=== PATIENT | female | born 1990 | race Caucasian/White ===

== ENCOUNTER 2020-09-04 02:23 | Emergency (ER) | payer SELFPAY ==
--- OUTSIDE RECORDS SUMMARY | 2020-09-04 02:41 | XMS REPORT | Continuity of Care Document ---
:1990 Author Organization [facility] t Address [address] [place] [address] Care Team Providers Name Role Phone Asked, Pcp Primary Care Physician Unavailable Singer SHETTY Attending Clinician Ani BOONE, Tana Attending Clinician Problems This patient has no known problems. Allergies, Adverse Reactions, Alerts Allergy Allergy Status Severity Reaction(s) Onset Inactive Treating Comm ents Source Name Type Date Date Clinician Latex Propensi Active Hives [place] ty to 4-25 Methodi adverse 00:00: st reaction 00 s to drug Penicill Propensi Active Hives [place] in G ty to 25 Methodi adverse 00:00: st reaction 00 s to drug Social History Social Habit Start Date Stop Date Quantity Comments Source History [facility] Alcohol Binge History [facility] Alcohol Std Drinks Tobacco use and 2018-06-25 2018-06-25 Never used [facility] ethodist exposure 00:00:00 00:00:00 Alcohol intake 2018-06-25 2018-06-25 Current [facility] thodist 00:00:00 00:00:00 non-drinker of alcohol (finding) History SDMN 2018-06-25 2018-06-25 1 [facility] Alcohol Frequency 00:00:00 00:00:00 Sex [birth year] At [birth year] [facility] Veronica ethodist 00:00:00 00:00:00 Smoking Status Start Date Stop Date Source Never smoker [facility] t Medications Ordered Filled Start Stop Current Ordering Indication Dosage Frequency Signature Comments Components Source Medication Medication Date Date Medication? Clinician (SIG) Name Name ibuprofen 2019 Yes 600mg Q6H Take 1 [place] on (ADVIL,MOTR 4-25 tablet Method i IN) 600 MG 00:00: ([address] tablet 00 total) by mouth every 6 (six) hours as needed for mild pain for up to 40 doses. Procedures This patient has no known procedures. Plan of Care Planned Activity Planned Date Details Comments Source Future Scheduled 2020-10-01 INFLUENZA VACCINE [place] [facility] 00:00:00 [code = INFLUENZA VACCINE] Future Scheduled 2013 Screening for [facility] thodist Test 00:00:00 malignant neoplasm of cervix (procedure) [code = 473891122] Future Scheduled 2010 Hepatitis C [facility] Test 00:00:00 screening (procedure) [code = 246916671] Future Scheduled 2004 COVID-19 VACCINE (1) [facility] stev[facility] 00:00:00 [code = COVID-19 VACCINE (1)] Encounters Start End Encounter Admission Attending Care Care Encounter Source Date/Time Date/Time Type Type Clinicians Facility Department ID 2020-05-04 2020-05-04 Emergency [facility] [id number] 08:24:00 09:02:00 Antoine Flores [id number] [place] [id number] [place] [id number] 2019-04-28 2019-04-28 Emergency [facility] [id number] 18:08:01 20:33:00 Dora Flores [id number] [place] [id number] [place] [id number] Results This patient has no known results.
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
[2020-09-04 03:55] VITALS: BP 150/105; TEMP 97.8; O2SAT 98
== END 2020-09-04 03:48 | disposition left against medical advice (07) ==
LOC: ER 02:23
DX: R68.84 Jaw pain (principal); S30.1XXA Contusion of abdominal wall, initial encounter; Y04.2XXA Assault by strike against or bumped into by another person, initial encounter; Z88.0 Allergy status to penicillin; Z91.018 Allergy to other foods; Z91.030 Bee allergy status; Z91.040 Latex allergy status; Z91.048 Other nonmedicinal substance allergy status
CPT/HCPCS: 99282

== ENCOUNTER 2022-01-30 01:04 | Emergency (ER) | payer OTHER ==
--- OUTSIDE RECORDS SUMMARY | 2022-01-30 01:09 | XMS REPORT | Continuity of Care Document ---
:1990 Author Organization [facility] t Address [address] [place] [address] Care Team Providers Name Role Phone LUIS E PINA Primary Care Physician Unavailable CELSO MURRIETA Attending Clinician Unavailable JG KAUFMAN Attending Clinician Unavailable Jg Romano Attending Clinician Christal LONG Attending Clinician Unavailable Christal Escalante Attending Clinician Doctor Unassigned, [place] Attending Clinician Unavailable Carlo Valladares Attending Clinician Unavailable Antoine Ndiaye DO Attending Clinician YADIRA GARCIA Attending Clinician Unavailable Yadira Garcia NP Attending Clinician KNOW, DOES_NOT Admitting Clinician Unavailable YADIRA GARCIA Admitting Clinician Unavailable Payers Payer Name Policy Type Policy Number Effective Date Expiration Date Justina [employer] [id number] 2019 HEALTH 00:00:00 Problems Condition Condition Condition Status Onset Resolution Last Treating Co mments Source Name Details Category Date Date Treatment Clinician Date Placenta Placenta Disease Active Unive rs previa previa 7 ity of 00:00: [address] Branch Placenta Placenta Disease Active Unive rs previa previa 6-22 [place]y [place] second 00 Medi angelito trimester trimester Bran ch Bed bug Bed bug Disease Active Univers bite bite 6-17 ity of 00:00: [place] [address] Medical Branch Chlamydia Chlamydia Disease Active Uni vers infection infection 5-27 [place] second in second Bran ch trimester, trimester, antepartum antepartum Bacterial Bacterial Disease Active Uni vers vaginosis vaginosis 5-27 ity of 00:00: [place] [address] Medical Branch Supervisio Supervisio Disease Active U nivers n of n of 5-20 ity of high-risk high[place] [facility] with with Branch insufficie insufficie nt nt care, care, second second trimester trimester History of History of Disease Active U nivers gallstones gallstones 5-20 it y of 00:00: [place] [address] Medical Branch History of History of Disease Active U nivers ovarian ovarian 5-20 ity of cyst cyst 00:00: [place] [address] Medical Branch Kidney Kidney Disease Active Univers cyst, cyst, 5-20 ity of acquired acquired 00:00: [place] [address] Medical Branch Sterilizat Sterilizat Disease Active U nivers ion ion 5-20 ity of consult consult 00:00: [place] [address] Medical Branch Vaginal Vaginal Disease Active Univers bleeding bleeding 5-20 ity of in in 00:00: [place] , , 00 Me dical first first Branch trimester trimester UTI in UTI in Disease Active 2015- Univers , , 5-20 it y of antepartum [place] , [place] , second 00 Medica l trimester trimester Bran ch Allergies, Adverse Reactions, Alerts Allergy Allergy Status Severity Reaction(s) Onset Inactive Treating Comm ents Source Name Type Date Date Clinician penicill DA Active SV 2020- [facility] G 7-08 [place] 00:00: d 00 [facility] coconut FA Active SV 2020- [facility] 7-08 [place] 00:00: d 00 [facility] penicill DA Active SV RASH 2020-0 [facility] in G 7-08 [place] 00:00: d 00 [facility] coconut FA Active SV RASH 2020-0 [facility] 7-08 [place] 00:00: d 00 [facility] Penicill Propensi Active Swelling 2019-0 Univ ers ins ty to 2-26 ity of adverse 00:00: [place] reaction 00 Medical s Branch PENICILL Drug Active Swelling 2019-0 Univer s INS Class 2-26 ity of 00:00: [place] 00 Medical Branch Penicill Propensi Active Swelling 2019-0 Univ ers ins ty to 2-26 ity of adverse 00:00: [place] reaction 00 Medical s Branch Latex Propensi Active Hives Methodi ty to 4-25 st adverse 00:00: Hospita reaction 00 l s to drug Penicill Propensi Active Hives Method i in G ty to 4-25 st adverse 00:00: Hospita reaction 00 l s to drug COCONUT DRUG Active Anaphylaxis Univ ers INGREDI 5-16 ity of 00:00: [place] 00 Medical Branch LATEX DRUG Active Hives Univers INGREDI 5-16 ity of 00:00: [place] 00 Medical Branch Coconut Propensi Active Anaphylaxis Un kye ty to 5-16 ity of adverse 00:00: [place] reaction 00 Medical s Branch Latex Propensi Active Hives Univers ty to 5-16 ity of adverse 00:00: [place] reaction 00 Medical s Branch Social History Social Habit Start Date Stop Date Quantity Comments Source History of Current smoker University of tobacco use [place] [facility] [place] History [facility] Drinks History [facility] Exposure to 2022-01-06 2022-01-16 Not sure University SARS-CoV-2 00:00:00 22:38:00 [facility] (event) Branch Tobacco use and 2018-06-25 2018-06-25 Smokeless tobacco [facility] exposure 00:00:00 00:00:00 non-user Hospital Alcohol intake 2018-06-25 2018-06-25 Current [facility] 00:00:00 00:00:00 non-drinker of Hospital alcohol (finding) History SDOH 2018-06-25 2018-06-25 1 [facility] Frequency 00:00:00 00:00:00 Hospita l Sex Assigned At [birth year] [facility] 00:00:00 00:00:00 Hospital Smoking Status Start Date Stop Date Source Never smoked tobacco [facility] Ex-smoker 2015-07-21 00:00:00 2015-07-21 00:00:00 [facility] Medical Branch Medications Ordered Filled Start Stop Current Ordering Indication Dosage Frequency Signature Comments Components Source Medication Medication Date Date Medication? Clinician (SIG) Name Name ibuprofen 2021-03 Yes [id number] 800mg Take 1 U nivers 800 mg 1-16 tablet by ity of tablet 00:00: mouth [place] 00 every 6 Medical (six) Branch hours as needed for Pain (scale 1-3). Nitrofurant 2021-03- Yes [id number] 100mg Take 1 Univers oin&Nit. 1-16 11-24 capsule by ity of [place] 00:00: 05:59 [place] (MACROBID[place] 00 :00 the Medical 100 mg morning Branch capsule and 1 capsule in the evening. Do all this for 7 days. proMETHazin Yes [id number] 25mg Take 1 Univers e 25 mg 2-26 tablet by ity of tablet 00:00: mouth [place] 00 every 6 Medical (six) Branch hours as needed for Nausea and Vomiting (N/V). proMETHazin Yes [id number] 25mg Take 1 Univers e 25 mg 2-26 tablet by ity of tablet 00:00: mouth [place] 00 every 6 Medical (six) Branch hours as needed for Nausea and Vomiting (N/V). proMETHazin Yes [id number] 25mg Take 1 Univers e 25 mg 2-26 tablet by ity of tablet 00:00: mouth [place] 00 every 6 Medical (six) Branch hours as needed for Nausea and Vomiting (N/V). ibuprofen Yes 600mg Q6H Take 1 Metho di (ADVIL,MOTR 4-[address] IN) 600 MG 00:00: (600 mg Hosp cory tablet 00 total) by l mouth every 6 (six) hours as needed for mild pain for up to 40 doses. acetaminoph Yes [id number] 1{tbl} Take 1 Univers en-codeine 1-14 tablet by ity of (TYLENOL-CO 00:00: mouth [place] DEINE #3) 00 every 6 Medical 300-30 mg (six) Branch tablet hours as needed for Pain (scale 4-6). acetaminoph Yes [id number] 1{tbl} Take 1 Univers en-codeine 1-14 tablet by ity of (TYLENOL-CO 00:00: mouth [place] DEINE #3) 00 every 6 Medical 300-30 mg (six) Branch tablet hours as needed for Pain (scale 4-6). acetaminoph Yes [id number] 1{tbl} Take 1 Univers en-codeine 1-14 tablet by ity of (TYLENOL-CO 00:00: mouth [place] DEINE #3) 00 every 6 Medical 300-30 mg (six) Branch tablet hours as needed for Pain (scale 4-6). ondansetron 2016-03 Yes 4mg Take 1 Univ ers (ZOFRAN 0-04 tablet by ity of ODT) 4 mg 00:00: mouth [place] disintegrat 00 every 8 Medic al ing tablet (eight) Branch hours as needed for Nausea and Vomiting (N/V). ondansetron 2016-03 Yes 4mg Take 1 Univ ers (ZOFRAN 0-04 tablet by ity of ODT) 4 mg 00:00: mouth [place] disintegrat 00 every 8 Medic al ing tablet (eight) Branch hours as needed for Nausea and Vomiting (N/V). ondansetron 2016-03 Yes 4mg Take 1 Univ ers (ZOFRAN 0-04 tablet by ity of ODT) 4 mg 00:00: mouth [place] disintegrat 00 every 8 Medic al ing tablet (eight) Branch hours as needed for Nausea and Vomiting (N/V). traMADOL Yes [id number] 50mg Take 1 Un kye (ULTRAM) 50 8-26 tablet by ity of mg tablet 00:00: mouth [place] 00 every 6 Medical (six) Branch hours as needed for Pain (scale 7-10). ibuprofen Yes [id number] 600mg Take 1 Univers (MOTRIN) 8-26 tablet by ity of 600 mg 00:00: mouth [place] tablet 00 every 6 Medical (six) Branch hours as needed for Pain (scale 1-3) or Pain (scale 4-6). traMADOL Yes [id number] 50mg Take 1 Un kye (ULTRAM) 50 8-26 tablet by ity of mg tablet 00:00: mouth [place] 00 every 6 Medical (six) Branch hours as needed for Pain (scale 7-10). traMADOL Yes [id number] 50mg Take 1 Un kye (ULTRAM) 50 8-26 tablet by ity of mg tablet 00:00: mouth [place] 00 every 6 Medical (six) Branch hours as needed for Pain (scale 7-10). ibuprofen Yes [id number] 600mg Take 1 Univers (MOTRIN) 8-26 tablet by ity of 600 mg 00:00: mouth [place] tablet 00 every 6 Medical (six) Branch hours as needed for Pain (scale 1-3) or Pain (scale 4-6). ibuprofen 2- No [id number] 600mg Take 1 Univers (MOTRIN) 8-26 11-16 tablet by ity o f 600 mg 00:00: 00:00 mouth [place] tablet 00 :00 every 6 Medical (six) Branch hours as needed for Pain (scale 1-3) or Pain (scale 4-6). Iron 18 mg Yes Take by Univ ers Tab 8-19 mouth. ity of 16:58: [address] Iron 18 mg Yes Take by Univ ers Tab 8-19 mouth. ity of 16:58: [address] Branch Iron 18 mg Yes Take by Univ ers Tab 8-19 mouth. ity of 16:58: [place] [address] Medical Branch docusate Yes 100mg Take 100 Univ ers (COLACE) 8-17 mg by ity of 100 mg 00:00: mouth. [place] capsule Medical Branch ferrous Yes 65mg Take 65 mg Univ ers sulfate 325 8-17 by mouth. ity of mg (65 mg 00:00: [place] iron) 00 Medical tablet Branch docusate Yes 100mg Take 100 Univ ers (COLACE) 8-17 mg by ity of 100 mg 00:00: mouth. [place] capsule 00 Medical Branch ferrous Yes 65mg Take 65 mg Univ ers sulfate 325 8-17 by mouth. ity of mg (65 mg 00:00: [place] iron) 00 Medical tablet Branch docusate Yes 100mg Take 100 Univ ers (COLACE) 8-17 mg by ity of 100 mg 00:00: mouth. [place] capsule 00 Medical Branch ferrous Yes 65mg Take 65 mg Univ ers sulfate 325 8-17 by mouth. ity of mg (65 mg 00:00: [place] iron) 00 Medical tablet Branch Yes Take by Univer s vit 7-29 mouth. ity of no.124-iron 16:39: [facility] Medical ( Branch VITAMIN) 27 mg iron- 800 mcg Tab Yes Take by Univer s vit 7- mouth. ity of no.124-iron 16:39: [facility] Medical ( Branch VITAMIN) 27 mg iron- 800 mcg Tab Yes Take by Univer s vit 7- mouth. ity of no.124-iron 16:39: [facility] Medical ( Branch VITAMIN) 27 mg iron- 800 mcg Tab Immunizations Ordered Filled Immunization Date Status Comments [facility] e Immunization Name Name [facility] 2015-09-29 Completed University 00:00:00 [facility] 2015-09-29 Completed University 00:00:00 [facility] 2015-09-29 Completed [facility] 00:00:00 [facility] [place] [facility] Vital Signs Vital Name Observation Time Observation Value Comments Source Systolic blood 2022-01-17 04:43:00 123 mm[Hg] Univer sity of [facility] Diastolic blood 2022-01-17 04:43:00 83 mm[Hg] Unive rsity of [facility] Heart rate 2022-01-17 04:43:00 126 /min [facility] Body temperature 2022-01-17 04:43:00 36.44 Marjorie [facility] Respiratory rate 2022-01-17 04:43:00 20 /min [facility] Body height 2022-01-17 04:43:00 180.3 cm [facility] Body weight 2022-01-17 04:43:00 59.421 kg [facility] BMI 2022-01-17 04:43:00 18.27 kg/m2 [facility] Oxygen saturation in 2022-01-17 04:43:00 97 /min [facility] Arterial blood by [facility] Pulse oximetry Branch Systolic blood 2021-05-30 02:10:00 131 mm[Hg] Univer sity of [facility] Diastolic blood 2021-05-30 02:10:00 98 mm[Hg] Unive rsity of [facility] Heart rate 2021-05-30 02:10:00 118 /min [facility] Body temperature 2021-05-30 02:10:00 36.89 Marjorie [facility] Respiratory rate 2021-05-30 02:10:00 18 /min [facility] Body height 2021-05-30 02:10:00 180.3 cm [facility] Body weight 2021-05-30 02:10:00 54.432 kg [facility] BMI 2021-05-30 02:10:00 16.74 kg/m2 [facility] Procedures Procedure Date / Time Performing Clinician Source Performed EKG-12 LEAD 2022-01-17 05:51:32 Og [facility] URINALYSIS 2022-01-17 05:07:00 Og [facility] POCT TEST 2022-01-17 04:54:00 [facility] URINE DRUG (IMMUNOASSAY) 2022-01-17 04:49:00 Og [facility] - COMPREHENSIVE DRUG Medical [facility] SCREEN CONSENT/REFUSAL FOR 2022-01-17 04:35:05 Doctor Unassigned, No [facility] [place] [facility] Name [facility] CONSENT/REFUSAL FOR 2021-05-30 02:05:06 Doctor Unassigned, No [facility] [place] [facility] Name [facility] NOTICE OF PRIVACY 2021-05-30 02:04:48 Doctor Unassigned, No [facility] PRACTICES Name [facility] Plan of Care Planned Activity Planned Date Details Comments Source Future Scheduled 2022-01-06 HEPATITIS B [facility] Test 13:12:02 VACCINES (1 of 3 - 3-dose series) [code = HEPATITIS B VACCINES (1 of 3 - 3-dose series)] Future Scheduled 2022-01-06 COVID-19 [facility]ACCINE [facility] Test 13:12:02 (#1) [code = COVID-19 VACCINE (#1)] Future Scheduled 2022-01-06 Screening for [facility] Test 13:12:02 malignant neoplasm of cervix (procedure) [code = 542648542] Future Scheduled 2022-01-06 INFLUENZA VACCINE [facility] Test 13:12:02 [code = INFLUENZA VACCINE] Encounters Start End Encounter Admission Attending Care Care Encounter Source Date/Time Date/Time Type Type Clinicians Facility Department ID 2021-01-[address] [facility] [id number] Univers 15:10:31 ity [facility] 2020-12-[address] [facility] [id number] Univers 03:04:51 ity of [facility] [place] [facility] 2022-01-22 2022-01-22 Outpatient R GLENNY, [facility] [id number] Univers 09:00:00 09:00:00 CELSO ity of [facility] [place] [facility] 2022-01-16 2022-01-16 Emergency X RIDJOSE, [facility] ERT [id number] Univers 22:46:00 23:55:00 DANIERAMY it y of [facility] [place] [facility] 2022-01-16 2022-01-16 Emergency Redig, [facility] [id number] Univers 22:46:00 23:55:00 Jg BELTRE [id number] ity of [place] [id number] [facility] [id number] [facility] 084 Branch 2021-05-29 2021-05-29 Emergency X ETHAN, K [facility] ERT [id number] Univers 21:17:00 22:50:00 ity of [facility] [place] [facility] 2021-05-29 2021-05-29 Emergency Ethan, K [facility] [id number] Univers 21:17:00 22:50:00 Cher BELTRE [id number] i ty of [place] [id number] [facility] [id number] [facility] 084 Branch 2021-05-29 2021-05-29 Orders Doctor CLOVIS [id number] Univers 00:00:00 00:00:00 Only Unassigned, JAMISON [id number] ity of [facility] [id number] [facility] [id number] [facility] 009 Branch 2020-09-07 2020-09-08 Emergency EM Valladares, [facility] [id number] [facility] 22:26:00 02:30:00 Carlo deng [facility] 2020-05-042020-05-04 [facility] [id number] 08:24:00 09:02:00 Antoine Belt[place] [id number] [place] [id number] [place] [id number] 2019-04-28 2019-04-28 Emergency X [facility] ERT [id number] Univers 18:08:01 20:33:00 YADIRA warner [facility] 2019-04-28 2019-04-28 Emergency [facility] [id number] 18:08:01 20:33:00 Yadira [place] [id number] [place] [id number] [place] [id number] Results Test Description Test Time Test Comments Results Result Comments Source POCT TEST 2022-01-17 04:54:00 Test Item Value Reference Range Interpretation Comme nts POCT PREG (test code = 1605) Negative On board controls acceptable with C Line (test code = 3574) Positiv e POCT PREG LOT # (test code = 3575) [id number] POCT PREG TEST DATE (test code = 3576) 06/01/2023 Lab Interpretation (test code = 90724-8) [facility] CULT IF [id number] 01:56:00 Test Item Value Reference Range Interpretation Comments UA COLOR (test code = YELLOW discript YEL/STRAW COLU) UA APPEARANCE (test code HAZY discript CLEAR A = APPU) UA GLUCOSE DIPSTICK (test NEGATIVE mg/dL NEG code = DGLUU) UA BILIRUBIN DIPSTICK NEGATIVE mg/dL NEG (test code = BILU) UA KETONE DIPSTICK (test NEGATIVE mg/dL NEG code = KETU) UA SPECIFIC GRAVITY (test 1.020 SG 1.005-1.030 code = SGU) UA BLOOD DIPSTICK (test NEGATIVE mg/DL NEG code = KIP) UA PH DIPSTICK (test code 6.0 pH UNITS 5.0-7.0 = ANIBAL) UA PROTEIN DIPSTICK (test NEGATIVE mg/dL NEG code = PROU) UA UROBILINIOGEN DIPSTICK 1.0 mg/dL <2.0 (test code = URO) UA NITRITE DIPSTICK (test POSITIVE SCREEN NEG A code = DAWN) UA LEUKOCYTE ESTERASE TRACE Leuk/mcL NEGATIVE A DIPSTICK (test code = LEUU) UA WBC (test code = WBCU) 3-5 #WBC/HPF 0-3 A UA RBC (test code = RBCU) NONE SEEN #RBC/HPF 0-3 UA BACTERIA (test code = 1+ /HPF NONE-TRACE A BACU) UA SQUAMOUS CELLS (test 1+ /HPF NONE A code = SQU) UA CULTURE NEEDED? (test NO, WBC<10 Criteria Culture CHK code = UACULT) Indication for culture: Dysuria/FrequencyUR HCG [id number] 01:56:00 Test Item Value Reference Range Interpretation Comments UR HCG QUAL (test code = HCGQLU) NEGATIVE NEGATIVE Indication for culture: Dysuria/FrequencyDRUGS OF ABUSE SCREEN [id number] 01:56:00 Test Item Value Reference Range Interpretation Comments URN COCAINE (test NEGATIVE See_Comment [Automate d code = COCAURN) SCcutoff message] The system which generated this result transmit ashu reference range : <300 NG/ML. The reference range was not used to interpret this result as normal/abnormal . URN CANNABINOIDS POSITIVE See_Comment A [Automated (test code = SCcutoff message] The CANNABURN) system which generated this result transmit ashu reference range : <50 NG/ML. The reference range was not used to interpret this result as normal/abnormal . URN AMPHETAMINE (test POSITIVE See_Comment A [Auto mated code = AMPHETURN) SCcutoff message] T he system which generated this result transmit ashu reference range : <1000 NG/ML. Th e reference range was not used to interpret this result as normal/abnormal . URN BARBITURATE (test NEGATIVE See_Comment [Auto mated code = BARBITURN) SCcutoff message] T he system which generated this result transmit ashu reference range : <200 NG/ML. The reference range was not used to interpret this result as normal/abnormal . URN BENZODIAZEPINE NEGATIVE See_Comment [Automat ed (test code = SCcutoff message] The BENZOURN) system which generated this result transmit ashu reference range : <200 NG/ML. The reference range was not used to interpret this result as normal/abnormal . URN OPIATES (test NEGATIVE See_Comment [Automate d code = OPIATURN) SCcutoff message] Th e system which generated this result transmit ashu reference range : <2000 NG/ML. Th e reference range was not used to interpret this result as normal/abnormal . URN PHENCYCLIDINE NEGATIVE See_Comment [Automate d (PCP) (test code = SCcutoff message] The PHENCURN) system which generated this result transmit ashu reference range : <25 NG/ML. The reference range was not used to interpret this result as normal/abnormal . URN METHADONE (test NEGATIVE See_Comment [Automa ashu code = METHAURN) SCcutoff message] Th e system which generated this result transmit ashu reference range : <300 NG/ML. The reference range was not used to interpret this result as normal/abnormal . Indication for culture: Dysuria/FrequencyUA RFLX MICR CULT IF INDICATED 2020-09-08 01:53:00 Test Item Value Reference Range Interpretation Comments UA COLOR (test code = YELLOW discript YEL/STRAW COLU) UA APPEARANCE (test code HAZY discript CLEAR A = APPU) UA GLUCOSE DIPSTICK (test NEGATIVE mg/dL NEG code = DGLUU) UA BILIRUBIN DIPSTICK NEGATIVE mg/dL NEG (test code = BILU) UA KETONE DIPSTICK (test NEGATIVE mg/dL NEG code = KETU) UA SPECIFIC GRAVITY (test 1.020 SG 1.005-1.030 code = SGU) UA BLOOD DIPSTICK (test NEGATIVE mg/DL NEG code = KIP) UA PH DIPSTICK (test code 6.0 pH UNITS 5.0-7.0 = ANIBAL) UA PROTEIN DIPSTICK (test NEGATIVE mg/dL NEG code = PROU) UA UROBILINIOGEN DIPSTICK 1.0 mg/dL <2.0 (test code = URO) UA NITRITE DIPSTICK (test POSITIVE SCREEN NEG A code = DAWN) UA LEUKOCYTE ESTERASE TRACE Leuk/mcL NEGATIVE A DIPSTICK (test code = LEUU) UA WBC (test code = WBCU) 3-5 #WBC/HPF 0-3 A UA RBC (test code = RBCU) NONE SEEN #RBC/HPF 0-3 UA BACTERIA (test code = 1+ /HPF NONE-TRACE A BACU) UA SQUAMOUS CELLS (test 1+ /HPF NONE A code = SQU) UA CULTURE NEEDED? (test NO, WBC<10 Criteria Culture CHK code = UACULT) Indication for culture: Dysuria/FrequencyUR HCG [id number] 01:53:00 Test Item Value Reference Range Interpretation Comments UR HCG QUAL (test code = HCGQLU) NEGATIVE NEGATIVE Indication for culture: Dysuria/FrequencyDRUGS OF ABUSE SCREEN [id number] 01:53:00 Test Item Value Reference Range Interpretation Comments URN COCAINE (test code = SCcutoff See_Comment [A utomated message] COCAURN) The system [employer] generated this result transmit ashu reference range : <300 NG/ML. The reference range was not used to interpret this result as normal/abnormal . URN CANNABINOIDS (test SCcutoff See_Comment [Aut omated message] code = CANNABURN) The system which generated this result transmit ashu reference range : <50 NG/ML. The refe rence range was not u sed to interpret th is result as normal/abnormal . URN AMPHETAMINE (test SCcutoff See_Comment [Auto mated message] code = AMPHETURN) The system which generated this result transmit ashu reference range : <1000 NG/ML. Th e reference range was not used to interpret this result as normal/abnormal . URN BARBITURATE (test SCcutoff See_Comment [Auto mated message] code = BARBITURN) The system which generated this result transmit ashu reference range : <200 NG/ML. The reference range was not used to interpret this result as normal/abnormal . URN BENZODIAZEPINE (test SCcutoff See_Comment [A utomated message] code = BENZOURN) The system which generated this result transmit ashu reference range : <200 NG/ML. The reference range was not used to interpret this result as normal/abnormal . URN OPIATES (test code = SCcutoff See_Comment [A utomated message] OPIATURN) The system [employer] generated this result transmit ashu reference range : <2000 NG/ML. Th e reference range was not used to interpret this result as normal/abnormal . URN PHENCYCLIDINE (PCP) SCcutoff See_Comment [Au tomated message] (test code = PHENCURN) The s ystem which generated this result transmit ashu reference range : <25 NG/ML. The refe rence range was not u sed to interpret th is result as normal/abnormal . URN METHADONE (test code SCcutoff See_Comment [A utomated message] = METHAURN) The system [employer] generated this result transmit ashu reference range : <300 NG/ML. The reference range was not used to interpret this result as normal/abnormal . Indication for culture: Dysuria/FrequencyUA RFLX MICR CULT IF INDICATED 2020-09-08 01:51:00 Test Item Value Reference Range Interpretation Comments UA COLOR (test code = COLU) YELLOW discript YEL/STRAW UA APPEARANCE (test code = HAZY discript CLEAR A APPU) UA GLUCOSE DIPSTICK (test NEGATIVE mg/dL NEG code = DGLUU) UA BILIRUBIN DIPSTICK (test NEGATIVE mg/dL NEG code = BILU) UA KETONE DIPSTICK (test code NEGATIVE mg/dL NEG = KETU) UA SPECIFIC GRAVITY (test 1.020 SG 1.005-1.030 code = SGU) UA BLOOD DIPSTICK (test code NEGATIVE mg/DL NEG = KIP) UA PH DIPSTICK (test code = 6.0 pH UNITS 5.0-7.0 ANIBAL) UA PROTEIN DIPSTICK (test NEGATIVE mg/dL NEG code = PROU) UA UROBILINIOGEN DIPSTICK 1.0 mg/dL <2.0 (test code = URO) UA NITRITE DIPSTICK (test POSITIVE SCREEN NEG A code = DAWN) UA LEUKOCYTE ESTERASE TRACE Leuk/mcL NEGATIVE A DIPSTICK (test code = LEUU) UA CULTURE NEEDED? (test code Criteria Culture CHK = UACULT) Indication for culture: Dysuria/FrequencyUR HCG [id number] 01:51:00 Test Item Value Reference Range Interpretation Comments UR HCG QUAL (test code = HCGQLU) NEGATIVE Indication for culture: Dysuria/FrequencyDRUGS OF ABUSE SCREEN [id number] 01:51:00 Test Item Value Reference Range Interpretation Comments URN COCAINE (test code = SCcutoff See_Comment [A utomated message] COCAURN) The system [employer] generated this result transmit ashu reference range : <300 NG/ML. The reference range was not used to interpret this result as normal/abnormal . URN CANNABINOIDS (test SCcutoff See_Comment [Aut omated message] code = CANNABURN) The system which generated this result transmit ashu reference range : <50 NG/ML. The refe rence range was not u sed to interpret th is result as normal/abnormal . URN AMPHETAMINE (test SCcutoff See_Comment [Auto mated message] code = AMPHETURN) The system which generated this result transmit ashu reference range : <1000 NG/ML. Th e reference range was not used to interpret this result as normal/abnormal . URN BARBITURATE (test SCcutoff See_Comment [Auto mated message] code = BARBITURN) The system which generated this result transmit ashu reference range : <200 NG/ML. The reference range was not used to interpret this result as normal/abnormal . URN BENZODIAZEPINE (test SCcutoff See_Comment [A utomated message] code = BENZOURN) The system which generated this result transmit ashu reference range : <200 NG/ML. The reference range was not used to interpret this result as normal/abnormal . URN OPIATES (test code = SCcutoff See_Comment [A utomated message] OPIATURN) The system [employer] generated this result transmit ashu reference range : <2000 NG/ML. Th e reference range was not used to interpret this result as normal/abnormal . URN PHENCYCLIDINE (PCP) SCcutoff See_Comment [Au tomated message] (test code = PHENCURN) The s [employer] which generated this result transmit ashu reference range : <25 NG/ML. The refe rence range was not u sed to interpret th is result as normal/abnormal . URN METHADONE (test code SCcutoff See_Comment [A utomated message] = METHAURN) The system [employer] generated this result transmit ashu reference range : <300 NG/ML. The reference range was not used to interpret this result as normal/abnormal . Indication for culture: Dysuria/Frequency- CT HEAD/BRAIN W/O [id number] 00:37:00[facility] 1990 Sex: F Name: AYAH GLASS : 1990 Age/S: 30 / F [address] Unit #: [id number] Loc: [place] [address] Phys: Carlo Valladares MD Acct: [id number] Dis Date: Status: REG ER PHONE#: [phone] Exam Date: 09/08/2020 0020 FAX #: Reason: ams EXAMS: CPT: [id number] CT HEAD/BRAIN W/O CONT 99768 Exam: CT of the brain without contrast. History: Altered mental status Technique: Contiguous axial CT images were obtained from the skull base through the vertex without contrast. One or more of the following dose reduction techniques were used: Automated exposure control, adjustment of the mA and/or kV according to patient size, and/or utilization of iterative reconstruction technique.Comparison: None Location: R16 Findings: The ventricles and sulci are normal in size and symmetric. The basal cisterns are patent. There is no mass effect or midline shift. There is no acute intracranial hemorrhage. There are no extra-axial fluid collections. Paranasal sinuses and mastoid air cells are clear. Impression: No CT evidence of an acute intracranial hemorrhage or significant mass effect Additional findings as detailed above at 0037 Reported and signed by: Caren Armando M.D. CC: Carlo Valladares MD Technologist:Taurus Kennedy, RT(R)(CT) CTDI: DLP: Trnscb Date/Time: 09/08/2020 (003) [email or web address] Orig Print D/T: S: 09/08/2020 (0040) PAGE 1 Signed ReportCOMPREHENSIVE METABOLIC [id number] 00:31:00 Test Item Value Reference Range Interpretation Comments SODIUM (test code = NA) 137 mmol/L 134-147 N POTASSIUM (test code = 3.9 mmol/L 3.4-5.0 N K) CHLORIDE (test code = 102 mmol/L 100-108 N CL) CARBON DIOXIDE (test 31 mmol/L 21-32 N code = CO2) ANION GAP (test code = 4.0 GAP calc 4.0-15.0 N GAP) GLUCOSE (test code = 88 MG/DL 70-110 N GLU) BLOOD UREA NITROGEN 19 MG/DL 7-18 H (test code = BUN) GLOMERULAR FILTRATION >=60 max estimate >60 RATE (test code = GFR) estGFR CREATININE (test code = 0.8 MG/DL 0.6-1.0 N CREAT) TOTAL PROTEIN (test code 7.7 G/DL 6.4-8.2 N = PROT) ALBUMIN (test code = 3.7 G/DL 3.4-5.0 N ALB) GLOBULIN (test code = 4.0 GM/dL GLOB) ALBUMIN/GLOBULIN RATIO 0.9 RATIO 1.2-2.2 L (test code = A/G) CALCIUM (test code = CA) 9.4 MG/DL 8.5-10.1 N BILIRUBIN TOTAL (test 0.30 MG/DL 0.2-1.2 N code = BILT) SGOT/AST (test code = 50 Unit/L 15-37 H AST) SGPT/ALT (test code = 95 Unit/L 12-78 H ALT) ALKALINE PHOSPHATASE 114 Unit/L 45-117 N TOTAL (test code = ALKP) Last Dose Date: 09/07/20 Dose Time: 2300HCG SERUM [id number] 00:31:00 Test Item Value Reference Range Interpretation Comments HCG SERUM QUAL (test SERUM NEGATIVE SCREEN NEGATIVE code = HCGQL) Last Dose Date: 09/07/20 Dose Time: [id number] 00:31:00 Test Item Value Reference Range Interpretation Comments ACETAMINOPHEN (test code = ACET) <2.0 mcG/ML 10.0-30.0 L Last Dose Date: 09/07/20 Dose Time: [id number] 00:31:00 Test Item Value Reference Range Interpretation Comments ALCOHOL (test code = ALC) 5 MG/DL 0-10 N Last Dose Date: 09/07/20 Dose Time: OMPREHENSIVE METABOLIC PANEL 2020-09-08 00:30:00 Test Item Value Reference Range Interpretation Comments SODIUM (test code = NA) 137 mmol/L 134-147 N POTASSIUM (test code = 3.9 mmol/L 3.4-5.0 N K) CHLORIDE (test code = 102 mmol/L 100-108 N CL) CARBON DIOXIDE (test 31 mmol/L 21-32 N code = CO2) ANION GAP (test code = 4.0 GAP calc 4.0-15.0 N GAP) GLUCOSE (test code = 88 MG/DL 70-110 N GLU) BLOOD UREA NITROGEN 19 MG/DL 7-18 H (test code = BUN) GLOMERULAR FILTRATION >=60 max estimate >60 RATE (test code = GFR) estGFR CREATININE (test code = 0.8 MG/DL 0.6-1.0 N CREAT) TOTAL PROTEIN (test code 7.7 G/DL 6.4-8.2 N = PROT) ALBUMIN (test code = 3.7 G/DL 3.4-5.0 N ALB) GLOBULIN (test code = 4.0 GM/dL GLOB) ALBUMIN/GLOBULIN RATIO 0.9 RATIO 1.2-2.2 L (test code = A/G) CALCIUM (test code = CA) 9.4 MG/DL 8.5-10.1 N BILIRUBIN TOTAL (test 0.30 MG/DL 0.2-1.2 N code = BILT) SGOT/AST (test code = 50 Unit/L 15-37 H AST) SGPT/ALT (test code = 95 Unit/L 12-78 H ALT) ALKALINE PHOSPHATASE 114 Unit/L 45-117 N TOTAL (test code = ALKP) Last Dose Date: 09/07/20 Dose Time: 2300HCG SERUM [id number] 00:30:00 Test Item Value Reference Range Interpretation Comments HCG SERUM QUAL (test SERUM NEGATIVE SCREEN NEGATIVE code = HCGQL) Last Dose Date: 09/07/20 Dose Time: [id number] 00:30:00 Test Item Value Reference Range Interpretation Comments ACETAMINOPHEN (test code = ACET) mcG/ML 10.0-30.0 Last Dose Date: 09/07/20 Dose Time: [id number] 00:30:00 Test Item Value Reference Range Interpretation Comments ALCOHOL (test code = ALC) 5 MG/DL 0-10 N Last Dose Date: 09/07/20Last Dose Time: 2300- XR CHEST 1 [id number] 00:28:00 [facility] : 1990 Sex: F Name: AYAH GLASS [facility] : 1990 Age/S: 30 / [id number] Unit #: [id number]: [place] [address] Phys: Carlo Valladares MD Acct: [id number] Dis Date: Status: REG ER PHONE #: [phone] Exam Date: 09/08/2020 0023 FAX #: Reason: ams EXAMS: CPT: [id number] XR CHEST 1 V 10115 Fluoro Time: DAP (Gy m2): Air Kerma (mGy): LOCATION: 5 HISTORY: 30-year-old female who presents with alteration of awareness. Pulmonary symptoms not otherwise specified. COMMENT: A frontal chest radiograph was obtained at 12:28 a.m. The lungs are clear. The cardiac silhouette, latasha, and mediastinumare unremarkable. A subtle scoliotic curvature is seen in the thoracolumbar spine. The soft tissues are unremarkable. Cardiac monitoring leads are present. IMPRESSION: There is no radiographic evidenceof acute cardiac pulmonary disease. at 0028 Reported and signed by: Yao Houston M.D. CC: Carlo Valladares MD PAGE 1 Signed Report Name: AYAH GLASS [facility] : 1990 Age/S: 30 / F [address] Unit #:[id number] Loc: [place] [address] Phys: Carlo Valladares MD Acct: [id number] Dis Date: Status: REG ER PHONE #: [phone] Exam Date: 09/08/202022 FAX #: Reason: ams EXAMS: CPT: [id number] XR CHEST 1 V 82532 Fluoro Time: DAP (Gy m2): Air Kerma (mGy): (Continued) Technologist: Taurus Kennedy, RT(R)(CT) Trnscb Date/Time: 09/08/2020 (27) [email or web address] Orig Print D/T: S: 09/08/2020 (30) PAGE 2 Signed ReportCOMPREHENSIVE METABOLIC [id number] 00:12:00 Test Item Value Reference Range Interpretation Comments SODIUM (test code = NA) 137 mmol/L 134-147 N POTASSIUM (test code = 3.9 mmol/L 3.4-5.0 N K) CHLORIDE (test code = 102 mmol/L 100-108 N CL) CARBON DIOXIDE (test 31 mmol/L 21-32 N code = CO2) ANION GAP (test code = 4.0 GAP calc 4.0-15.0 N GAP) GLUCOSE (test code = 88 MG/DL 70-110 N GLU) BLOOD UREA NITROGEN 19 MG/DL 7-18 H (test code = BUN) GLOMERULAR FILTRATION >=60 max estimate >60 RATE (test code = GFR) estGFR CREATININE (test code = 0.8 MG/DL 0.6-1.0 N CREAT) TOTAL PROTEIN (test code 7.7 G/DL 6.4-8.2 N = PROT) ALBUMIN (test code = 3.7 G/DL 3.4-5.0 N ALB) GLOBULIN (test code = 4.0 GM/dL GLOB) ALBUMIN/GLOBULIN RATIO 0.9 RATIO 1.2-2.2 L (test code = A/G) CALCIUM (test code = CA) 9.4 MG/DL 8.5-10.1 N BILIRUBIN TOTAL (test 0.30 MG/DL 0.2-1.2 N code = BILT) SGOT/AST (test code = 50 Unit/L 15-37 H AST) SGPT/ALT (test code = 95 Unit/L 12-78 H ALT) ALKALINE PHOSPHATASE 114 Unit/L 45-117 N TOTAL (test code = ALKP) Last Dose Date: 09/07/20 Dose Time: 2300HCG SERUM [id number] 00:12:00 Test Item Value Reference Range Interpretation Comments HCG SERUM QUAL (test code = HCGQL) SCREEN NEGATIVE Last Dose Date: 09/07/20 Dose Time: [id number] 00:12:00 Test Item Value Reference Range Interpretation Comments ACETAMINOPHEN (test code = ACET) mcG/ML 10.0-30.0 Last Dose Date: 09/07/20 Dose Time: [id number] 00:12:00 Test Item Value Reference Range Interpretation Comments ALCOHOL (test code = ALC) 5 MG/DL 0-10 N Last Dose Date: 09/07/20 Dose Time: [id number] 23:57:00 Test Item Value Reference Range Interpretation Comments SALICYLATE (test code < 1.7 MG/DL See_Comment L [Auto mated message] = CELIA) The system [employer] generated this result transmitted ref erence range: 2.8-20.0 THER. The reference r sushma was not used to interpret this result as normal/abnor mal. CBC W/AUTO [id number] 23:25:00 Test Item Value Reference Range Interpretation Comments WHITE BLOOD CELL (test code = 7.5 K/mm3 3.5-11.0 N WBC) RED BLOOD CELL (test code = 4.93 M/mm3 4.70-6.10 N RBC) HEMOGLOBIN (test code = HGB) 14.4 G/DL 10.4-14.9 N HEMATOCRIT (test code = HCT) 45.2 % 31.5-44.1 H MEAN CELL VOLUME (test code = 91.7 Fl 84.5-98.6 N MCV) MEAN CELL HGB (test code = MCH) 29.2 pg 27.0-34.2 N MEAN CELL HGB CONCETRATION 31.9 G/DL 31.5-34.0 N (test code = MCHC) RED CELL DISTRIBUTION WIDTH 11.8 SD 11.5-14.5 N (test code = RDW) PLATELET COUNT (test code = 280 K/mm3 150-450 N PLT) MEAN PLATELET VOLUME (test code 8.90 fL 7.0-10.5 N = MPV) NEUTROPHIL % (test code = NT%) 69.4 % 40-76 N IMMATURE GRANULOCYTE % (test 0.3 % 0.0-5.0 N code = IG%) LYMPHOCYTE % (test code = LY%) 20.5 % 20.5-51.1 N MONOCYTE % (test code = MO%) 7.8 % 1.7-9.3 N EOSINOPHIL % (test code = EO%) 1.6 % 0.0-6.0 N BASOPHIL % (test code = BA%) 0.4 % 0.0-2.0 N NUCLEATED RBC % (test code = 0.0 /100WBC% 0.0-1.0 N NRBC%) NEUTROPHIL # (test code = NT#) 5.2 K/mm3 1.8-7.6 N IMMATURE GRANULOCYTE # (test 0.02 x10 3/uL 0.00-0.03 N code = IG#) LYMPHOCYTE # (test code = LY#) 1.5 K/mm3 0.6-3.2 N MONOCYTE # (test code = MO#) 0.6 K/mm3 0.3-1.1 N EOSINOPHIL # (test code = EO#) 0.1 K/mm3 0.0-0.4 N BASOPHIL # (test code = BA#) 0.0 K/mm3 0.0-0.1 N NUCLEATED RBC # (test code = 0.0 K/mm3 0.0-0.1 N NRBC#) MANUAL DIFF REQUIRED (test code NO DIFF/SCN CRITERIA = MDIFF)
[2022-01-30] MEDS ORDERED: CEFAZOLIN SODIUM 1 GM/VIAL ONE (01:46)
[2022-01-30] MEDS ORDERED: NA CHLORIDE 0.9% 100 ML IV ONE (01:46)
[2022-01-30 01:53] LABS: Urine Blood 3+ (Negative); Urine Glucose Negative (Negative); Urine Protein Negative (Negative); Urine Specific Gravity >=1.030 (1.005-1.030); Urine pH 6.5 (5.0-7.0)
[2022-01-30] MEDS ORDERED: SMZ./TMP. 800/160 MG TABLET ONE (02:04)
[2022-01-30] MEDS ORDERED: TETANUS & DIPHTHERIA TOX,ADULT 0.5 ML VIAL ONE (02:05)
[2022-01-30] MEDS ORDERED: ACETAMINOPHEN 325 MG TABLET ONE (02:26)
[2022-01-30] MEDS ORDERED: MUPIROCIN 2% OINT 22GM TUBE TOP ONE (02:27)
[2022-01-30 02:40] LABS: Absolute Lymphocytes (CBC) 1.8 K/uL (0.7-4.9); Hematocrit 34.5 % (36.0-45.0); Lymphocytes % 26.1 % (15.3-44.8); MCV 87.7 fL (80-100); MPV 7.3 fL (7.6-11.3); RBC Red Blood Cell Count 3.93 M/uL (3.86-4.86)
[2022-01-30 02:40] LABS: Urine Specific Gravity/Preg >1.030 (1.005-1.030)
[2022-01-30 02:50] LABS: BUN Blood Urea Nitrogen 14 mg/dL (7-18); Bicarbonate 26 mmol/L (21-32); Glomerular Filtration Rate 122 ml/min (=/>90); Glucose Level 101 mg/dL (74-106); Potassium 3.8 mmol/L (3.5-5.1); Sodium Level 137 mmol/L (136-145)
[2022-01-30 02:56] LABS: HCG, Quantitative < 1 mIU/mL (1-3)
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
--- NOTE | 2022-01-30 05:08 | EDPHYS ---
Physician Documentation [facility] Name: Marlena Perea Age: 31 yrs Sex: Female : 1990 Arrival Date: 01/30/2022 Time: 01:08 Bed 20 Private MD: NEFTALY Physician Chandler Rueda HPI: 01/30 01:43 This 31 yrs old Female presents to ER via Ambulatory with complaints of judie Cough, Vaginal Bleeding, + Preg <12wks. 01:43 The patient presents with vaginal bleeding that is light, moderate. Onset: The judie symptoms/episode began/occurred 2 day(s) ago. Modifying factors: The symptoms are alleviated by nothing, the symptoms are aggravated by nothing. 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 - Social history:: Smoking status: Patient denies any tobacco usage or history of. ROS: 01:43 Constitutional: Negative for fever, chills, and weight loss, Eyes: Negative for injury, judie pain, redness, and discharge, ENT: Negative for injury, pain, and discharge, Neck: Negative for injury, pain, and swelling, Cardiovascular: Negative for chest pain, palpitations, and edema, Respiratory: Negative for shortness of breath, cough, wheezing, and pleuritic chest pain, Abdomen/GI: Negative for abdominal pain, nausea, vomiting, diarrhea, and constipation, Back: Negative for injury and pain, Skin: Negative for injury, rash, and discoloration, Neuro: Negative for headache, weakness, numbness, tingling, and seizure, Psych: Negative for depression, anxiety, suicide ideation, homicidal ideation, and hallucinations, Allergy/Immunology: Negative for hives, rash, and allergies, Endocrine: Negative for neck swelling, polydipsia, polyuria, polyphagia, and marked weight changes, Hematologic/Lymphatic: Negative for swollen nodes, abnormal bleeding, and unusual bruising. 01:43 : Positive for pelvic pain, of the abdomen. Exam: 01:43 Constitutional: This is a well developed, well nourished patient who is awake, alert, judie and in no acute distress. Head/Face: Normocephalic, atraumatic. Eyes: Pupils equal round and reactive to light, extra-ocular motions intact. Lids and lashes normal. Conjunctiva and sclera are non-icteric and not injected. Cornea within normal limits. Periorbital areas with no swelling, redness, or edema. ENT: Nares patent. No nasal discharge, no septal abnormalities noted. Tympanic membranes are normal and external auditory canals are clear. Oropharynx with no redness, swelling, or masses, exudates, or evidence of obstruction, uvula midline. Mucous membranes moist. Neck: Trachea midline, no thyromegaly or masses palpated, and no cervical lymphadenopathy. Supple, full range of motion without nuchal rigidity, or vertebral point tenderness. No Meningismus. Chest/axilla: Normal chest wall appearance and motion. Nontender with no deformity. No lesions are appreciated. Cardiovascular: Regular rate and rhythm with a normal S1 and S2. No gallops, murmurs, or rubs. Normal PMI, no JVD. No pulse deficits. Respiratory: Lungs have equal breath sounds bilaterally, clear to auscultation and percussion. No rales, rhonchi or wheezes noted. No increased work of breathing, no retractions or nasal flaring. Abdomen/GI: Soft, non-tender, with normal bowel sounds. No distension or tympany. No guarding or rebound. No evidence of tenderness throughout. Back: No spinal tenderness. No costovertebral tenderness. Full range of motion. Skin: Warm, dry with normal turgor. Normal color with no rashes, no lesions, and no evidence of cellulitis. Neuro: Awake and alert, GCS 15, oriented to person, place, time, and situation. Cranial nerves II-XII grossly intact. Motor strength 5/5 in all extremities. Sensory grossly intact. Cerebellar exam normal. Normal gait. Psych: Awake, alert, with orientation to person, place and time. Behavior, mood, and affect are within normal limits. 01:43 : CVA tenderness, is absent, Pelvic Exam: External exam: is normal, Bladder: is normal, non-distended, non-tender, distension, is not appreciated, Sexual behavior: the patient is sexually active, and reports a single partner. 01:43 Musculoskeletal/extremity: Extremities: grossly normal except: erythema, pain, swelling, tenderness, ROM: full active range of motion, full passive range of motion, Circulation is intact in all extremities. Sensation intact. Compartment Syndrome exam of affected extremity: is normal. no numbness, no tingling, no sensation deficit, no palor, no weak pulses. 01:43 Skin: cellulitis, that is mild. Vital Signs: 01:10 BP 131 / 91; Pulse 96; Resp 18; Temp 98.7; Pulse Ox 99% on R/A; Weight 58.97 kg; Height tw5 5 ft. 11 in. (180.34 cm); Pain 8/10; 02:34 BP 117 / 76; Pulse 80; Resp 17; Pulse Ox 99% ; jj7 03:41 BP 93 / 62; Pulse 78; Resp 20; Pulse Ox 97% ; jj7 04:45 BP 95 / 65; Pulse 81; Resp 17; Pulse Ox 98% ; jj7 05:52 BP 115 / 80; Pulse 67; Resp 18; Pulse Ox 99% ; Pain 0/10; jj7 01:10 Body Mass Index 18.13 (58.97 kg, 180.34 cm) tw5 MDM: 01:37 Patient medically screened. judie 01:45 Differential diagnosis: nonspecific abdominal pain, postcoital bleeding, urinary tract judie infection. Data reviewed: vital signs, nurses notes, lab test result(s), radiologic studies, plain films, ultrasound. Data interpreted: resident services coordinator: rate is 96 beats/min, Pulse oximetry: on room air is 96 %. Test interpretation: by ED physician or midlevel provider: plain radiologic studies. Counseling: I had a detailed discussion with the patient and/or guardian regarding: the historical points, exam findings, and any diagnostic results supporting the discharge/admit diagnosis, lab results, radiology results. 01/30 01:35 Order name: Abo/rh Typing; Complete Time: 04:07 [facility] 01/30 01:35 Order name: Basic Metabolic Panel; Complete Time: 04:07 judie 01/30 01:35 Order name: CBC with Diff; Complete Time: 02:53 [facility] 01/30 01:35 Order name: Quantitative Hcg; Complete Time: 04:07 [facility] 01/30 01:53 Order name: Urine Dipstick-Ancillary; Complete Time: 01:54 [facility]MS 01/30 01:56 Order name: Urine --Ancillary (enter results); Complete Time: 02:53 mw2 01/30 01:35 Order name: US Transvaginal Ob [facility] 01/30 01:35 Order name: IV Saline Lock; Complete Time: 02:31 [facility] 01/30 01:35 Order name: Labs collected and sent; Complete Time: 02:31 [facility] 01/30 01:42 Order name: Hand Right 3 View XRAY [facility] 01/30 01:35 Order name: NPO; Complete Time: 02:31 [facility] 01/30 01:35 Order name: Urine Dipstick-Ancillary (obtain specimen); Complete Time: 01:57 [facility] 01/30 01:35 Order name: Urine Test (obtain specimen); Complete Time: 01:57 [facility] Administered Medications: 02:25 Drug: Ancef (cefazolin) 2 grams Route: IVPB; Infused Over: 30 mins; Site: right jj7 antecubital; 02:31 Drug: Bactroban (mupirocin) Ointment 2 % 1 application Route: Topical; Site: right hand;jj7 02:32 Drug: Tetanus Toxoid,Adsorbed 0.5 ml {Vice President Of Instruction: [employer]gall. Exp: 07/07/2023. Lot jj7 #: [id number]. } Route: IM; Site: right deltoid; 02:32 Drug: Bactrim (trimethoprim-sulfamethoxazole) (160 mg-800 mg (DS) 1 tablet Route: PO; jj7 Point of Care Testing: Urine : 05:53 hCG Reading: Negative; jj7 Disposition Summary: 01/30/22 05:08 Discharge Ordered Location: Home judie Problem: new judie Symptoms: have improved judie Condition: Stable judie Diagnosis - Cellulitis and acute lymphangitis of other parts of limb - right hand, 3rd mcp judie - Other specified abnormal uterine and vaginal bleeding judie - UTI/ Urinary tract infection, site not specified judie Followup: judie - With: Private Physician - When: 2 - 3 days - Reason: Recheck today's complaints, Continuance of care, Re-evaluation by your physician Followup: judie - With: - When: 2 - 3 days - Reason: Recheck today's complaints, Re-evaluation by your physician Discharge Instructions: - Discharge Summary Sheet judie - Cellulitis, Adult judie - Metrorrhagia judie - Urinary Tract Infection, Adult judie - Urinary Tract Infection, Adult, [id number] judie - Cellulitis, Adult, [id number] [facility] Forms: - Medication Reconciliation Form [facility] - Thank You Letter judie - Antibiotic Education [facility] - Prescription Opioid Use [facility] Prescriptions: - Cephalexin 500 mg Oral Capsule - take 1 capsule by ORAL route every 6 hours for 7 days; 28 capsule; Refills: 0, [facility] Product Selection Permitted - Bactrim DS 800-160 mg Oral Tablet - take 1 tablet by ORAL route every 12 hours for 7 days; 14 tablet; Refills: 0, [facility] Product Selection Permitted - Centany 2 % Topical ointment - apply 1 application by TOPICAL route 3 times per day; 15 gram; Refills: 0, [facility] Product Selection Permitted Signatures: Dispatcher [employer] Chandler Peoples MD MD cha Wood, Tiffany tw5 Diamond Gonzalez RN RN jj7
[2022-01-30 06:04] VITALS: TEMP 98.7
[2022-01-30 06:22] VITALS: BP 115/80; O2SAT 99
--- NOTE | 2022-01-30 13:39 | RAD REPORT ---
EXAM DESCRIPTION: US - Transvaginal OB - 01/30/2022 6:39 am CLINICAL HISTORY: The patient is 31 years old and is Female; ABD PAIN LMP unknown, possibly Septembe r 2021. TECHNIQUE: Real-time transvaginal obstetrical ultrasound of the maternal pelvis and a first trimeste r with image documentation. Transvaginal imaging was used for better evaluation of the fe tus and adnexa. COMPARISON: No relevant prior studies available. FINDINGS: Gestation: No intrauterine gestational sac, yolk sac or pole. Placenta/amniotic fluid: Cannot be adequately evaluated due to the early gestational age. Uterus/cervix: Uterus is 8.8 x 4.4 x 5.3 cm. Nabothian cysts. Endometrial stripe 6.8 mm in thickness. No myometrial mass. Ovaries: Right ovary sought but not visualized. Left ovary 2.5 x 3.0 x 2.1 cm. Free fluid: No free fluid. * A single impression for all exams can be found at the end of this report EXAM DESCRIPTION: US Duplex Arterial/Venous of the Pelvis, Complete CLINICAL HISTORY: The patient is 31 years old and is Female; ABD PAIN LMP unknown, possibly Septembe r 2021. TECHNIQUE: Real-time duplex ultrasound scan of the pelvis integrating B-mode two-dimensional vascula r structure, Doppler spectral analysis and color flow Doppler imaging. COMPARISON: No relevant prior studies available. FINDINGS: Right ovary: Unremarkable. Normal blood flow on color and spectral Doppler imaging. No torsion. Left ovary: Unremarkable. Normal blood flow on color and spectral Doppler imaging. No torsion . * A single impression for all exams can be found at the end of this report IMPRESSION: US , Transvaginal: No IUP identified. Differential diagnosis includes early gestation, ectopic and, if the p atient is bleeding, threatened . Serial quantitative hCGs and short-term ultrasound follow-up recommended. US Duplex Arterial/Venous of the Pelvis, Complete: 1. No left ovarian torsion. 2. Right ovary sought but not visualized. Electronically signed by: Kandi Hopkins MD 01/30/2022 4:18 AM AUTOMATION ENGINEERING MANAGER Due to temporary technical issues with the PACS/Fluency reporting system, reports are being signed by the in house radiologists without review as a courtesy to insure prompt reporting. The interpreting radiologist is fully responsible for the content of the report.
--- NOTE | 2022-01-30 14:55 | RAD REPORT ---
EXAM DESCRIPTION: RAD - Hand Right 3 View - 01/30/2022 2:14 am CLINICAL HISTORY: The patient is 31 years old and is Female; PAIN TECHNIQUE: Three views of the right hand. COMPARISON: No relevant prior studies available. FINDINGS: Bones/joints: Unremarkable. No acute fracture. No dislocation. Soft tissues: Dorsal soft tissue swelling. No radiopaque foreign body. IMPRESSION: Dorsal soft tissue swelling. Electronically signed by: Kandi Hopkins MD 01/30/2022 5:14 AM NEWS COMMENTATOR Due to temporary technical issues with the PACS/Fluency reporting system, reports are being signed by the in house radiologists without review as a courtesy to insure prompt reporting. The interpreting radiologist is fully responsible for the content of the report.
== END 2022-01-30 05:54 | disposition home or self-care (01) ==
LOC: ER 01:04
DX: N93.8 Other specified abnormal uterine and vaginal bleeding (principal); L03.113 Cellulitis of right upper limb; L03.123 Acute lymphangitis of right upper limb; N39.0 Urinary tract infection, site not specified; Z88.0 Allergy status to penicillin; Z91.018 Allergy to other foods; Z91.030 Bee allergy status; Z91.040 Latex allergy status; Z91.048 Other nonmedicinal substance allergy status; Z23 Encounter for immunization
CPT/HCPCS: 85025; 80048; 36415; 86900; 81025; 86901; 84702; 81003; 73130; 90471; 90714; 76817; 96374; 99284; J0690

== ENCOUNTER 2022-08-23 17:39 | Inpatient (IN) | payer OTHER, SELFPAY ==
--- OUTSIDE RECORDS SUMMARY | 2022-08-23 17:44 | XMS REPORT | Continuity of Care Document ---
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 Toxicology Salicylates (2.8 - 20.0 THER MG/DL) < 1.7 L Urine Opiates Screen (<2000 NG/ML SCcutoff) NEG ATIVE Urine Methadone Screen (<300 NG/ML SCcutoff) NE GATIVE Urine Barbiturates (<200 NG/ML SCcutoff) NEGATI VE Ur Phencyclidine Scrn (<25 NG/ML SCcutoff) NEGA TIVE Ur Amphetamines Screen (<1000 NG/ML SCcutoff) P OSITIVE H U Benzodiazepines Scrn (<200 NG/ML SCcutoff) NE GATIVE Urine Cocaine Screen (<300 NG/ML SCcutoff) NEGA TIVE Urine Cannabinoids (<50 NG/ML SCcutoff) POSITIV E H Urines Urine Color (YEL/STRAW discript) YELLOW Urine Appearance (CLEAR discript) HAZY H Urine pH (5.0 - 7.0 pH UNITS) 6.0 Ur Specific [place] (1.005 - 1.030 SG) 1.020 Urine Protein (NEG mg/dL) NEGATIVE Urine Glucose (UA) (NEG mg/dL) NEGATIVE Urine Ketones (NEG mg/dL) NEGATIVE Urine Blood (NEG mg/DL) NEGATIVE Urine Nitrite (NEG SCREEN) POSITIVE H Urine Bilirubin (NEG mg/dL) NEGATIVE Urine Urobilinogen (<2.0 mg/dL) 1.0 Ur Leukocyte Esterase (NEGATIVE Leuk/mcL) TRACE H Urine RBC (0 - 3 #RBC/HPF) NONE SEEN Urine WBC (0 - 3 #WBC/HPF) 3-5 H Ur Squamous Epith Cells (NONE /HPF) 1+ H Urine Bacteria (NONE - TRACE /HPF) 1+ H Urine Culture Screen (Culture CHK Criteria) NO, WBC<10 Urine HCG, Qual (NEGATIVE) NEGATIVE 09/07 2256 Chemistry Sodium (134 - 147 mmol/L) 137 Potassium (3.4 - 5.0 mmol/L) 3.9 Chloride (100 - 108 mmol/L) 102 Carbon Dioxide (21 - 32 mmol/L) 31 Anion Gap (4.0 - 15.0 GAP calc) 4.0 BUN (7 - 18 MG/DL) 19 H Creatinine (0.6 - 1.0 MG/DL) 0.8 Glomerular Filtr Rate (>60 estGFR) >=60 max est imate Glucose (70 - 110 MG/DL) 88 Calcium (8.5 - 10.1 MG/DL) 9.4 Total Bilirubin (0.2 - 1.2 MG/DL) 0.30 AST (15 - 37 Unit/L) 50 H ALT (12 - 78 Unit/L) 95 H Total Alk Phosphatase (45 - 117 Unit/L) 114 Total Protein (6.4 - 8.2 G/DL) 7.7 Albumin (3.4 - 5.0 G/DL) 3.7 Globulin (GM/dL) 4.0 Albumin/Globulin Ratio (1.2 - 2.2 RATIO) 0.9 L Serum , Qual (NEGATIVE SCREEN) SERUM N EGATIVE Hematology WBC (3.5 - 11.0 K/mm3) 7.5 RBC (4.70 - 6.10 M/mm3) 4.93 Hgb (10.4 - 14.9 G/DL) 14.4 Hct (31.5 - 44.1 %) 45.2 H MCV (84.5 - 98.6 Fl) 91.7 MCH (27.0 - 34.2 pg) 29.2 MCHC (31.5 - 34.0 G/DL) 31.9 RDW (11.5 - 14.5 SD) 11.8 Plt Count (150 - 450 K/mm3) 280 MPV (7.0 - 10.5 fL) 8.90 Neut % (Auto) (40 - 76 %) 69.4 Lymph % (Auto) (20.5 - 51.1 %) 20.5 [place] % (Auto) (1.7 - 9.3 %) 7.8 Eos % (Auto) (0.0 - 6.0 %) 1.6 Baso % (Auto) (0.0 - 2.0 %) 0.4 Neut # (Auto) (1.8 - 7.6 K/mm3) 5.2 Lymph # (Auto) (0.6 - 3.2 K/mm3) 1.5 [place] # (Auto) (0.3 - 1.1 K/mm3) 0.6 Eos # (Auto) (0.0 - 0.4 K/mm3) 0.1 Baso # (Auto) (0.0 - 0.1 K/mm3) 0.0 Abs Immat Gran (auto) (0.00 - 0.03 x10 3/uL) 0. 02 Add Manual Diff (CRITERIA DIFF/SCN) NO Immature Gran % (0.0 - 5.0 %) 0.3 Nucleated RBC % (0.0 - 1.0 /100WBC%) 0.0 Toxicology Acetaminophen (10.0 - 30.0 mcG/ML) <2.0 L Ethyl Alcohol (0 - 10 MG/DL) 5 Recent Impressions: CAT SCAN - CT HEAD/BRAIN W/O CONT 09/08 0015 Report Impression - Status: SIGNED Entered: 09/08/2020 0040 Impression: No CT evidence of an acute intracranial hemorrha ge or significant mass effect Additional findings as detailed above Impression By: [email or web address] - Caren Armando M.D. RADIOLOGY - XR CHEST 1 V 09/08 0020 Report Impression - Status: SIGNED Entered: 09/08/2020 0031 IMPRESSION: There is no radiographic evidence of acute cardi ac pulmonary disease. Impression By: [email or web address] - Darrian Johnson ECG #1 Interpretation ECG Documented in MUSE Yes Date 09/07/20 Time 2250 Interpreted by ED physician NL ECG Interpretation Normal rate, Normal sinus rhythm, No acute ischemic changes, No STEMI, Normal QRS, Normal ST waves, Normal T waves, Normal axis, Adequate tracing Rate 90 Re-Evaluation MDM )( Re-Evaluation/Progress #1 )( Re-Eval Status Improved Patient Discharge Departure Vital Signs/Condition Vital Signs First Documented: Result Date Time Pulse Ox 100 07/08 2230 B/P 111/66 07/08 2230 B/P Mean 81 07/08 2230 Temp 98.3 07/08 2230 Pulse 83 07/08 2230 Resp 16 07/08 2230 Last Documented: Result Date Time Pulse Ox 100 07/09 0230 B/P 130/90 07/09 0230 B/P Mean 103 07/09 0230 Temp 98.1 07/09 0230 Pulse 90 07/ 0230 Resp 18 07/ 0230 All vital signs available at the time of this en try have been reviewed. Clinical Impression Clinical Impression Primary Impression: Altered mental status Disposition Decision Discharge )( Discharged to Home Yes )( Time 0225 )( Date 09/08/20 Discharge/Care Plan Patient Instructions ED ALOC Referrals Mae Velásquez DO Electronically Signed by Carlo Valladares MD on 0 09/09/20 at 0413 RPT #: [id number] END OF REPORT
[2022-08-23] MEDS ORDERED: NA CHLORIDE 0.9% 1,000 ML ONE ×3 (18:32→23:44)
[2022-08-23] MEDS ORDERED: MORPHINE 4 MG/ML SYR ONE (18:32)
[2022-08-23] MEDS ORDERED: ONDANSETRON 4 MG/2 ML VIAL ONE (18:32)
[2022-08-23] MEDS ORDERED: NA CHLORIDE 0.9% 500 ML ONE (18:32)
--- NOTE | 2022-08-23 18:39 | RAD REPORT ---
EXAM DESCRIPTION: RAD - Chest Single View - 08/23/2022 6:29 pm CLINICAL HISTORY: FEVER Chest pain. COMPARISON: No comparisons FINDINGS: Portable technique limits examination quality. The lungs are grossly clear. The heart is normal in size. No displaced fractures.Mild dextroscoliosis of the thoracic spine. IMPRESSION: No acute intrathoracic process suspected.
[2022-08-23 18:58] LABS: Absolute Lymphocytes (CBC) 0.8 K/uL (0.7-4.9); Hematocrit 42.2 % (36.0-45.0); Lymphocytes % 6.5 % (15.3-44.8); MCV 87.8 fL (80-100); MPV 7.8 fL (7.6-11.3); RBC Red Blood Cell Count 4.81 M/uL (3.86-4.86)
[2022-08-23] MEDS ORDERED: NA CHLORIDE 0.9% 100 ML ONE (19:16)
[2022-08-23] MEDS ORDERED: CEFEPIME 2 GM VIAL ONE (19:16)
[2022-08-23 19:17] LABS: Albumin 3.5 g/dL (3.4-5.0); Bilirubin Total 0.8 mg/dL (0.2-1.0); Potassium 3.2 mEq/L (3.5-5.1); Protein, Total 8.4 g/dL (6.4-8.2); Troponin High Sensitivity 7.2 pg/mL (<58.9)
[2022-08-23 20:07] LABS: Protime INR 1.07
--- NOTE | 2022-08-23 20:42 | RAD REPORT ---
EXAM DESCRIPTION: CT - CTHCSPWOC - 08/23/2022 8:35 pm CLINICAL HISTORY: Trauma, head and neck injury. TRAUMA COMPARISON: No comparisons TECHNIQUE: Axial 5 mm thick images of the head were obtained. Axial 2 mm thick images of the cervical spine were obtained with sagittal and coronal reconstruction images generated and reviewed. All CT scans are performed using dose optimization technique as appropriate and may include automated exposure control or mA/KV adjustment according to patient size. FINDINGS: CT HEAD WITHOUT CONTRAST: No acute hemorrhage, hydrocephalus or extra-axial collection is identified.No areas of brain edema or midline shift. The paranasal sinuses and mastoids are clear.The calvarium is intact. CT CERVICAL SPINE WITHOUT CONTRAST: No fracture or subluxation.Mild spondylosis.No prevertebral soft tissues swelling is identified. IMPRESSION: No acute intracranial or cervical spine findings.
--- NOTE | 2022-08-23 20:45 | RAD REPORT ---
EXAM DESCRIPTION: CTAbdomen Pelvis W Contrast - 08/23/2022 8:35 pm CLINICAL HISTORY: Abdominal pain. ABD PAIN COMPARISON: CT ABD PELVIS W CONTRAST dated 11/05/2007 TECHNIQUE: Biphasic CT imaging of the abdomen and pelvis was performed with 100 ml non-ionic IV cont rast. All CT scans are performed using dose optimization technique as appropriate and may include automated exposure control or mA/KV adjustment according to patient size. FINDINGS: The lung bases are clear. The liver, spleen, pancreas, adrenal glands are within normal limits. The left kidney is enlarged brit ntar with multiple corticomedullary areas of diminished density compatible with pyelonephritis. No si gnificant hydronephrosis. Early pyelonephritis also likely present on the right. Small stone is present in the inferior calyx r ight kidney. No hydronephrosis on the right. No bowel obstruction, free air, free fluid or abscess. The appendix is not identified as a discrete structure, however, no secondary findings of appendicitis are identified. No evidence of significan t lymphadenopathy. No suspicious bony findings. IMPRESSION: Pyelonephritis involves the left kidney, which is enlarged. No perinephric abscess. Early pyelonephritis suspected to be developing involving the right kidney as well. Small nonobstructing right renal calculus.
--- NOTE | 2022-08-23 21:12 | ER ---
Nurse's Notes [facility] Name: Marlena Perea Age: 32 yrs Sex: Female : 1990 Arrival Date: 08/23/2022 Time: 17:39 Bed 19 Private MD: Diagnosis: Pyelonephritis acute;Severe sepsis without septic shock;Hypokalemia;Acute kidney failure, unspecified Presentation: 08/23 17:58 Chief complaint: Patient states: Constipation X3 weeks, "I haven't peed in at least 2-3 cm10 days, I have blacked out a few times and I have hit my head about 8 times." Pt complaining of pain to entire body. Coronavirus screen: Vaccine status: Patient reports being unvaccinated. Client denies travel out of the [place] in the last 14 days. Ebola Screen: Patient denies travel to an Ebola-affected area in the 21 days before illness onset. No symptoms or risks identified at this time. Initial Sepsis Screen: Does the patient meet any 2 criteria? HR > 90 bpm. Does the patient have a suspected source of infection? No. Patient's initial sepsis screen is negative. Risk Assessment: Do you want to hurt yourself or someone else? Patient reports no desire to harm self or others. Onset of symptoms is unknown. 17:58 Method Of Arrival: Ambulatory cm10 17:58 Acuity: ELOY 3 cm10 Historical: - Allergies: 18:01 Bees; cm10 18:01 Coconut; cm10 18:01 Latex, Natural Rubber; cm10 18:01 PENICILLINS; cm10 - PMHx: 18:01 Anemia; Asthma; cm10 - PSHx: 18:01 Ligation of fallopian tube; section; cm10 - Immunization history:: Adult Immunizations unknown. - Social history:: Smoking status: Patient denies any tobacco usage or history of. - Family history:: not pertinent. Screenin:[facility] ED Fall Risk Assessment (Adult) History of falling in the last 3 months, kc6 including since admission No falls in past 3 months (0 pts) Confusion or Disorientation No (0 pts) Intoxicated or Sedated No (0 pts) Impaired Gait No (0 pts) Mobility Assist Device Used No (0 pt) Altered Elimination No (0 pt) Score/Fall Risk Level 0 - 2 = Low Risk Oriented to surroundings, Maintained a safe environment, Educated pt \\T\\ family on fall prevention, incl call for assistance when getting out of bed, Assessed \\T\\ reinforced patient's understanding of fall precautions, Hourly rounding (assess needs \\T\\ fall precautionary measures) done. Abuse screen: Denies threats or abuse. Denies injuries from another. Nutritional screening: No deficits noted. Tuberculosis screening: No symptoms or risk factors identified. Assessment: 18:53 General: Appears in no apparent distress. uncomfortable, ill, Behavior is calm, kc6 cooperative, appropriate for age. Pain: Complains of pain in back Pain currently is 9 out of 10 on a pain scale. Neuro: Level of Consciousness is awake, alert, obeys commands, Oriented to person, place, time, situation, Appropriate for age. Cardiovascular: Heart tones S1 S2 present Capillary refill < 3 seconds Rhythm is sinus tachycardia. Respiratory: Airway is patent Trachea midline Respiratory effort is even, unlabored, Respiratory pattern is regular, symmetrical. GI: Reports constipation. : Reports inability to void. EENT: No signs and/or symptoms were reported regarding the EENT system. Derm: No signs and/or symptoms reported regarding the dermatologic system. Skin is intact, Skin is pink, warm \\T\\ dry. Musculoskeletal: No signs and/or symptoms reported regarding the musculoskeletal system. Circulation, motion, and sensation intact. Capillary refill < 3 seconds, Range of motion: intact in all extremities. 19:15 Reassessment: Patient appears in no apparent distress at this time. Patient and/or jb4 family updated on plan of care and expected duration. Pain level reassessed. Patient is alert, oriented x 3, equal unlabored respirations, skin warm/dry/pink. 20:12 Reassessment: Patient appears in no apparent distress at this time. Patient and/or jb4 family updated on plan of care and expected duration. Pain level reassessed. Patient is alert, oriented x 3, equal unlabored respirations, skin warm/dry/pink. 21:30 Reassessment: Patient appears in no apparent distress at this time. Patient and/or jb4 family updated on plan of care and expected duration. Pain level reassessed. Patient is alert, oriented x 3, equal unlabored respirations, skin warm/dry/pink. 22:30 Reassessment: Pt resting in bed with eyes closed, respirations are even and unlabored jb4 with no s/s of pain or distress noted. 23:30 Reassessment: Patient appears in no apparent distress at this time. No changes from jb4 previously documented assessment. Patient and/or family updated on plan of care and expected duration. Pain level reassessed. 08/24 00:06 Reassessment: attempted to call report twice with no answer. jb4 Vital Signs: 08/23 17:58 BP 100 / 74; Pulse 125; Resp 18; Temp 100.3(O); Pulse Ox 100% on R/A; Weight 58.97 kg; cm10 Height 5 ft. 11 in. ; Pain 9/10; 18:54 BP 108 / 67; Pulse 100; Resp 19 S; Pulse Ox 95% on R/A; kc6 20:00 BP 104 / 60; Pulse 91; Resp 18; Pulse Ox 99% ; jb4 21:30 BP 103 / 63; Pulse 90; Resp 17; Pulse Ox 100% on R/A; jb4 22:30 BP 97 / 58; Pulse 90; Resp 16; Pulse Ox 97% on R/A; jb4 23:45 BP 100 / 61; Pulse 78; Resp 17; Pulse Ox 98% on R/A; jb4 08/24 00:16 Temp 98.3(O); jb4 08/23 17:58 Body Mass Index 18.13 (58.97 kg, 180.34 cm) cm10 08/23 17:58 Pain Scale: Adult cm10 ED Course: 08/23 17:40 Patient arrived in ED. am2 17:40 Tobin Mascorro MD is Attending Physician. rt 18:01 Triage completed. cm10 18:01 Arm band placed on. cm10 18:12 Radiology exam delayed due to IV insertion attempt and/or patient not having jg10 appropriate IV at this time. 18:19 Carmella Jefferson, EFREN is Primary Nurse. kc6 18:30 Chest Single View XRAY In Process Unspecified. EDMS 18:42 Patient has correct armband on for positive identification. Placed in gown. Bed in low mm9 position. Call light in reach. Side rails up X 1. Warm blanket given. Client placed on continuous cardiac and pulse oximetry monitoring. NIBP monitoring applied. threat monitoring analyst on. Pulse ox on. NIBP on. 18:42 EKG done, by ED staff, reviewed by Tobin Mascorro MD. mm9 18:52 Missed attempt(s): 20 gauge in right antecubital area. Inserted saline lock: 20 gauge kc6 in left antecubital area, using aseptic technique. Blood collected. 20:37 CT Abd/Pelvis - IV Contrast Only In Process Unspecified. EDMS 20:37 CT Head C Spine In Process Unspecified. EDMS 21:10 Yao Martini MD is Hospitalizing Provider. rt 08/24 00:41 No provider procedures requiring assistance completed. Patient admitted, IV remains in jb4 place. Administered Medications: 08/23 18:52 Drug: NS 0.9% IV (30 ml/kg) 30 ml/kg Route: IV; Rate: bolus; Site: left antecubital; kc6 18:52 Drug: morphine IVP or IV 4 mg Route: IVP; Infused Over: 4 mins; Site: left antecubital; kc6 18:52 Drug: Ondansetron IVP 4 mg Route: IVP; Site: left antecubital; kc6 20:08 Drug: Cefepime IVPB 2 grams Route: IVPB; Rate: 200 ml/hr; Infused Over: 30 mins; Site: jb4 right forearm; 21:13 Not Given (Patient Refused): fentaNYL (PF) IVP 50 mcg IVP once jb4 21:31 Drug: NS 0.9% IV 1000 ml {Note: administered over 2hrs with first bag of potassium. jb4 Hospitalist okayed new rate.} Route: IV; Rate: 500 ml/hr; Site: right forearm; 21:31 Drug: Lactulose PO 20 grams Volume: 30 ml; Route: PO; jb4 21:31 Drug: Potassium Chloride IV 40 mEq Route: IV; Rate: calculated rate; Site: right jb4 forearm; 22:17 Drug: Ketorolac IVP 15 mg Route: IVP; Site: left antecubital; jb4 Outcome: 21:11 Decision to Hospitalize by Provider. rt 08/24 00:41 Admitted to Med/surg accompanied by tech, via stretcher, room 412, with chart. jb4 Condition: stable Discharge instructions given to patient, Instructed on the need for admit, Demonstrated understanding of instructions. 00:42 Patient left the ED. jb4 Signatures: Dispatcher [employer] EDMS Elliott Herman, RN RN jb4 Zander, Carmella Chandler RN RN kc6 Karen Greene mm9 Alisha Brunerg10 Tobin Mascorro MD MD rt Eugenia Greene RN RN cm10
--- NOTE | 2022-08-23 21:12 | EDPHYS ---
Physician Documentation [facility] Name: Marlena Perea Age: 32 yrs Sex: Female : 1990 Arrival Date: 08/23/2022 Time: 17:39 Bed 19 Private MD: ED Physician Tobin Mascorro HPI: 08/23 20:26 This 32 yrs old Female presents to ER via Ambulatory with complaints of Flank Pain, rt dehydration, Urinary Retention. 20:26 Patient presents to the ED with inability to urinate. Patient states that she has not rt urinated in about 3 days. The patient states that she does not have the urge to urinate nor does she feel that her bladder is filling up. Patient does state that she has had multiple syncopal episodes, hitting her head multiple times. She reports generalized abdominal pain. She denies other acute complaints at this time. Symptoms are moderate severity, no other aggravating or alleviating factors.. Historical: - Allergies: 18:01 Bees; cm10 18:01 Coconut; cm10 18:01 Latex, Natural Rubber; cm10 18:01 PENICILLINS; cm10 - PMHx: 18:01 Anemia; Asthma; cm10 - PSHx: 18:01 Ligation of fallopian tube; section; cm10 - Immunization history:: Adult Immunizations unknown. - Social history:: Smoking status: Patient denies any tobacco usage or history of. - Family history:: not pertinent. ROS: 20:26 Eyes: Negative for injury, pain, redness, and discharge. rt 20:26 Cardiovascular: Negative for chest pain, palpitations, and edema, Respiratory: Negative for shortness of breath, cough, wheezing, and pleuritic chest pain, MS/Extremity: Negative for injury and deformity, Skin: Negative for injury, rash, and discoloration, Psych: Negative for depression, anxiety, suicide ideation, homicidal ideation, and hallucinations. 20:26 Abdomen/GI: Positive for abdominal pain, nausea, vomiting. 20:26 Neuro: Positive for headache, syncope. Exam: 20:26 Constitutional: This is a well developed, well nourished patient who is awake, alert, rt and in no acute distress. Head/Face: Normocephalic, atraumatic. Chest/axilla: Normal chest wall appearance and motion. Nontender with no deformity. No lesions are appreciated. Cardiovascular: Regular rate and rhythm with a normal S1 and S2. No gallops, murmurs, or rubs. Normal PMI, no JVD. No pulse deficits. Respiratory: Lungs have equal breath sounds bilaterally, clear to auscultation and percussion. No rales, rhonchi or wheezes noted. No increased work of breathing, no retractions or nasal flaring. Skin: Warm, dry with normal turgor. Normal color with no rashes, no lesions, and no evidence of cellulitis. MS/ Extremity: Pulses equal, no cyanosis. Neurovascular intact. Full, normal range of motion. Neuro: Awake and alert, GCS 15, oriented to person, place, time, and situation. Cranial nerves II-XII grossly intact. Motor strength 5/5 in all extremities. Sensory grossly intact. Cerebellar exam normal. Normal gait. Psych: Awake, alert, with orientation to person, place and time. Behavior, mood, and affect are within normal limits. 20:26 ECG was reviewed by the Attending Physician. 20:26 Abdomen/GI: Tenderness diffusely with mild guarding, no rebound, no abdominal distention. Vital Signs: 17:58 BP 100 / 74; Pulse 125; Resp 18; Temp 100.3(O); Pulse Ox 100% on R/A; Weight 58.97 kg; cm10 Height 5 ft. 11 in. ; Pain 9/10; 18:54 BP 108 / 67; Pulse 100; Resp 19 S; Pulse Ox 95% on R/A; kc6 20:00 BP 104 / 60; Pulse 91; Resp 18; Pulse Ox 99% ; jb4 21:30 BP 103 / 63; Pulse 90; Resp 17; Pulse Ox 100% on R/A; jb4 22:30 BP 97 / 58; Pulse 90; Resp 16; Pulse Ox 97% on R/A; jb4 23:45 BP 100 / 61; Pulse 78; Resp 17; Pulse Ox 98% on R/A; jb4 08/24 00:16 Temp 98.3(O); jb4 08/23 17:58 Body Mass Index 18.13 (58.97 kg, 180.34 cm) cm10 08/23 17:58 Pain Scale: Adult cm10 MDM: 08/23 18:11 Patient medically screened. rt 21:11 Differential diagnosis: nephrolithiasis, pyelonephritis, UTI, sepsis. Data reviewed: rt vital signs, nurses notes, lab test result(s), EKG, radiologic studies. Consideration of Admission/Observation Patient was admitted/placed on observation. Management of patient was discussed with the following: Hospitalist: Agrees to admit. I considered the following discharge prescriptions or medication management in the emergency department Medications were administered in the Emergency Department. See MAR. Response to treatment: the patient's symptoms have mildly improved after treatment. 08/23 18:09 Order name: Blood Culture Adult (2) rt 08/23 18:09 Order name: CBC with Diff; Complete Time: 19:02 rt 08/23 18:09 Order name: CMP; Complete Time: 19:28 rt 08/23 18:09 Order name: Lactate w/ 2H reflex if indic.; Complete Time: 19:28 rt 08/23 18:09 Order name: Protime (+inr); Complete Time: 20:09 rt 08/23 18:09 Order name: Ptt, Activated; Complete Time: 20:09 rt 08/23 18:09 Order name: Urinalysis w/ reflexes; Complete Time: 23:50 rt 08/23 18:09 Order name: Test, Serum; Complete Time: 20:09 rt 08/23 18:09 Order name: CPK; Complete Time: 19:28 rt 08/23 18:09 Order name: Troponin High Sensitivity; Complete Time: 19:28 rt 08/23 18:18 Order name: Glucose, Ancillary Testing; Complete Time: 19:02 EDMS 08/23 18:09 Order name: Chest Single View XRAY; Complete Time: 19:02 rt 08/23 18:09 Order name: CT Abd/Pelvis - IV Contrast Only; Complete Time: 20:47 rt 08/23 18:09 Order name: CT Head C Spine; Complete Time: 20:47 rt 08/23 18:09 Order name: EKG; Complete Time: 18:10 rt 08/23 18:09 Order name: Accucheck; Complete Time: 18:52 rt 08/23 18:09 Order name: Cardiac monitoring; Complete Time: 18:42 rt 08/23 18:09 Order name: EKG - Nurse/Tech; Complete Time: 18:42 rt 08/23 18:09 Order name: IV Saline Lock - Large Bore; Complete Time: 18:52 rt 08/23 18:09 Order name: Labs collected and sent; Complete Time: rt 08/23 18: Order name: O2 Per Protocol; Complete Time: rt 08/23 18: Order name: O2 Sat Monitoring; Complete Time: rt 08/23 18: Order name: Vital Signs; Complete Time: 18:25 rt EC:26 Rate is 99 beats/min. Rhythm is regular, Normal Sinus Rhythm with No ectopy. QRS [place] rt is Normal. CO interval is normal. QRS interval is normal. QT interval is normal. No Q waves. T waves are Normal. No ST changes noted. Interpreted by me. Administered Medications: 18: Drug: NS 0.9% IV (30 ml/kg) 30 ml/kg Route: IV; Rate: bolus; Site: left antecubital; kc6 18:52 Drug: morphine IVP or IV 4 mg Route: IVP; Infused Over: 4 mins; Site: left antecubital; 6 18:52 Drug: Ondansetron IVP 4 mg Route: IVP; Site: left antecubital; kc6 20:08 Drug: Cefepime IVPB 2 grams Route: IVPB; Rate: 200 ml/hr; Infused Over: 30 mins; Site: jb4 right forearm; 21:13 Not Given (Patient Refused): fentaNYL (PF) IVP 50 mcg IVP once jb4 21:31 Drug: NS 0.9% IV 1000 ml {Note: administered over 2hrs with first bag of potassium. jb4 Hospitalist okayed new rate.} Route: IV; Rate: 500 ml/hr; Site: right forearm; 21:31 Drug: Lactulose PO 20 grams Volume: 30 ml; Route: PO; jb4 21:31 Drug: Potassium Chloride IV 40 mEq Route: IV; Rate: calculated rate; Site: right jb4 forearm; 22:17 Drug: Ketorolac IVP 15 mg Route: IVP; Site: left antecubital; jb4 Disposition Summary: 08/23/22 21:11 Hospitalization Ordered Hospitalization Status: Inpatient Admission rt Provider: Yao Martini rt [facility] rt Condition: Fair rt Problem: new rt Symptoms: have improved rt Bed/Room Type: Standard rt Room Assignment: 412(08/23/22 22:18) jb4 Diagnosis - Pyelonephritis acute rt - Severe sepsis without septic shock rt - Hypokalemia rt - Acute kidney failure, unspecified rt Forms: - Medication Reconciliation Form rt - SBAR form rt Critical care time excluding procedures: 21:13 Critical care time: Bedside Care: 30 minutes, Consultation: 5 minutes. Total time: 35 rt minutes Signatures: Dispatcher [employer] EDMS Bruce Mosquera PA PA jmm Attema, Lee, SOLAR ELECTRIC/PHOTOVOLTAIC INSTALLER-C SOLAR ELECTRIC/PHOTOVOLTAIC INSTALLER-Cla1 Herman Elliott, RN RN jb4 Carmella Jefferson RN RN kc6 Tobin Mascorro MD MD rt Eugenia Greene RN RN cm10 Corrections: (The following items were deleted from the chart) 21:13 20:58 Straight Cath ordered. rt jb4 22:18 21:11 rt jb4
[2022-08-23] MEDS ORDERED: LACTULOSE 20 GM/30 ML UCUP ONE (21:29)
[2022-08-23] MEDS ORDERED: KCL 20 MEQ/100 mL IVPB 200 ML IV ONE (21:29)
--- NOTE | 2022-08-23 21:47 | P.HP ---
Certification for Inpatient Patient admitted to: Inpatient With expected LOS: >2 Midnights Patient will require the following post-hospital care: None Practitioner: I am a practitioner with admitting privileges, knowledge of patient current condition, hospital course, and medical plan of care. Services: Services provided to patient in accordance with Admission requirements found in Title 42 Section 412.3 of the Code of Federal Regulations Patient History Date of Service: 08/23/22 Reason for admission: Pyelonephritis History of Present Illness: 32-year-old female with history of asthma, anemia presents to the emergency department with chief complaint of decreased urinary output, inability to void, low back pain for the last 3 to 4 days. She also reports multiple syncopal episodes over the course of last 4 days which she attributes to low blood sugar. She has not measured her blood sugar at home but she reports she does have "hypoglycemia". She was evaluated in the emergency department her labs are significant for levels of 0.5 Sodium 128 Potassium to 3.2 Chloride 94 Creatinine 1.21 GFR [address] Abdomen Pelvis Shows Pyelonephritis Involving the Left Kidney Which Is Enlarged, No Perinephric Mass. Early Pyelonephritis Suspected to Be Evolving Involving the Right Kidney As Well. Small Nonobstructing Right Renal Calculus. Chest X-Ray Negative for Acute Findings CT Head/C-Spine Was Also Performed Given Her Multiple Syncopal Events/Falls Which Showed No Acute Intracranial or Cervical Spine Findings. Patient Was Started on Rocephin for Pyelonephritis SIRS Criteria Present Including Leukocytosis, Tachycardia. Source Infection Confirmed on CT without Nephritis. Lactate Less Than 2 No Blood Pressures Less Than 90 Systolic Currently. Will Admit for Further Evaluation and Management of Pyelonephritis, Sepsis. - Past Medical/Surgical History -: Anemia -: Asthma -: Psychosocial/ Personal History: Patient is unemployed, lives at home alone. - Family History Family History: Reviewed- Non-Contributory - Social History Smoking Status: Never smoker Caffeine use: Yes Place of Residence: Home Review of Systems 10-point ROS is otherwise unremarkable General: Fever, Weakness, Malaise Genitourinary: Retention, As per HPI Musculoskeletal: Back Pain Physical Examination - Physical Exam General: Alert, In no apparent distress, Oriented x3 HEENT: Atraumatic, PERRLA, Mucous membr. moist/pink, EOMI, Sclerae nonicteric Neck: Supple, 2+ carotid pulse no bruit, No LAD, Without JVD or thyroid abnormality Respiratory: Clear to auscultation bilaterally, Normal air movement Cardiovascular: Regular rate/rhythm, Normal S1 S2 Gastrointestinal: Normal bowel sounds, Tenderness (Mild suprapubic tenderness, positive CVA tenderness bilaterally) Musculoskeletal: No tenderness Integumentary: No rashes Neurological: Normal speech, Normal strength at 5/5 x4 extr, Normal tone, Normal affect - Studies Laboratory Data (last 24 hrs) 08/23/22 19:40: PT 11.8, INR 1.07, APTT 31.7 08/23/22 18:48: Sodium 128 L, Potassium 3.2 L, BUN 21 H, Creatinine 1.21 H, Glucose 108 H, Total Bilirubin 0.8, AST 21, ALT 33, Alkaline Phosphatase 82 08/23/22 18:48: WBC 12.50 H, Hgb 13.8, Hct 42.2, Plt Count 167 Assessment and Plan - Plan Assessment: Sepsis secondary to bilateral pyelonephritis Mild hyponatremia, hypokalemia Asthma Plan: Sepsis secondary to bilateral pyelonephritis Blood and urine cultures obtained, SIRS criteria present including leukocytosis, tachycardia. Source infection confirmed on CT with bilateral pyelonephritis. Continue antibioticsRocephin. Continue aggressive IV fluids, did receive 30 cc/kg IV fluid bolus in ED. Blood pressure soft between 90 and 100 systolic, lactate less than 2. Mild hyponatremia, hypokalemia Received IV fluid bolus with normal saline, continue IV fluids overnight. Potassium repleted in ED. Protocol placed. Asthma As needed nebulizer treatments, no active exacerbation. DVT PPX: Lovenox Code status: Full Discharge Plan: Home Plan to discharge in: 48 Hours - Advance Directives Does patient have a Living Will: No Does patient have a Durable POA for Healthcare: No - Code Status/Comfort Care Code Status Assessed: Yes (Full code) Critical Care: No Time Spent Managing Pts Care (In Minutes): 55
[2022-08-23] MEDS ORDERED: KETOROLAC 30 MG/ML INJ ONE (22:19)
[2022-08-23 22:26] LABS: Specific Gravity 1.028 (1.005-1.030); Urine Bacteria <20 /HPF (<20); Urine Bilirubin NEGATIVE (Negative); Urine Blood Negative (Negative); Urine Clarity Clear (Clear); Urine Color Light-Yellow (Yellow); Urine Glucose NEGATIVE (Negative); Urine Protein 1+ (Negative); Urine RBC <5 /HPF (None Seen); Urine Urobilinogen 1+ (Normal); Urine pH 6.5 (5.0-7.0)
[2022-08-23] MEDS: NA CHLORIDE 0.9% 1,000 ML IV SCH (23:34)
[2022-08-24 00:48] VITALS: BMI 14.2
[2022-08-24] MEDS ORDERED: POLYETHYL GLY 3350 17 GM/DOSE PO ONE (04:28)
[2022-08-24] MEDS: MORPHINE 2 MG/ML SYR IV PRN ×4 (04:30→20:40)
[2022-08-24] MEDS: ONDANSETRON 4 MG/2 ML VIAL IV PRN ×3 (04:39→20:40)
[2022-08-24] MEDS: CEFTRIAXONE 1,000 MG in NA CHLORIDE 0.9% 50 ML IVPB SCH (09:05)
[2022-08-24] MEDS: ENOXAPARIN 40 MG/0.4 ML SQ SCH (09:06)
[2022-08-24] MEDS: NA CHLORIDE 0.9% 1,000 ML IV SCH (09:57)
--- NOTE | 2022-08-24 11:23 | P.PN ---
Subjective Date of Service: 08/24/22 Chief Complaint: Pyelonephritis No acute events since admission. She reports bilateral flank pain. She states that she has had subjective fevers and chills at home prior to presentation. She states that she has had a history of pyelonephritis in the past. She denies any dysuria at this time. She denies any chest pain, palpitations, shortness of breath. Review of Systems 10-point ROS is otherwise unremarkable General: Fever, Chills, Sweats Genitourinary: Dysuria Musculoskeletal: Back Pain (bilateral flank) Physical Examination - Vital Signs Temperature: 99.1 F Blood Pressure: 106/57 Pulse: 80 Respirations: 14 Pulse Ox (%): 97 - Physical Exam General: Alert, In no apparent distress, Oriented x3 HEENT: Atraumatic, Mucous membr. moist/pink, Sclerae nonicteric Neck: JVD not distended Respiratory: Clear to auscultation bilaterally, Normal air movement Cardiovascular: No edema, Regular rate/rhythm, Normal S1 S2, No gallops, No rubs, No murmurs Gastrointestinal: Normal bowel sounds, Soft and benign, Non-distended, No tenderness, No rebound, No guarding Musculoskeletal: No clubbing Integumentary: No rashes Neurological: Normal speech, Normal affect - Studies Laboratory Data (last 24 hrs) 08/23/22 19:40: PT 11.8, INR 1.07, APTT 31.7 08/23/22 18:48: Sodium 128 L, Potassium 3.2 L, BUN 21 H, Creatinine 1.21 H, Glucose 108 H, Total Bilirubin 0.8, AST 21, ALT 33, Alkaline Phosphatase 82 08/23/22 18:48: WBC 12.50 H, Hgb 13.8, Hct 42.2, Plt Count 167 Assessment And Plan - Plan # Sepsis likely secondary to Bilateral Pyelonephritis She meets SIRS criteria based on HR > 90 bpm and WBC > 12,000, and the suspected source is pyelonephritis. - Evaluation: - Urinalysis = 1+ urobilinogen, 75 leukocyte esterase, 10-20 WBCs, 1+ protein - Chest x-ray = "no acute intrathoracic process suspected." - CT abdomen/pelvis = "pyelonephritis involves the left kidney, which is enlarged. No perinephric abscess. Early pyelonephritis suspected to be developing involving the right kidney as well. Small nonobstructing right renal calculus." - CT head/cervical spine = "no acute intracranial or cervical spine findings." - Sepsis order set was initiated - Initial Lactate was 1.8 - Blood cultures drawn before antibiotics were given - Broad spectrum antibiotics started: Ceftriaxone - In regards to fluids: - 30 mL/kg of IV fluids was not administered given SBP > 90, MAP > 65, lactic acid < 4 # KDIGO Stage I Acute Kidney Injury - Creatinine = 1.21 (creatinine was 0.66 on 01/30/2022) - Urinalysis = 1+ urobilinogen, 75 leukocyte esterase, 10-20 WBCs, 1+ protein - IV fluids with Lactated Ringers' @ 100 mL/hr - Monitor creatinine and urine output - If worsening, obtain renal ultrasound - Renally dose medications # Mild Hyponatremia - Suspect hypovolemic hyponatremia - IV fluids as mentioned above # Asthma - No evidence of acute exacerbation - Continue home meds Yao Martini M.D.
[2022-08-24] MEDS: Ringers Lactate 1,000 ML IV SCH ×2 (12:08→20:40)
[2022-08-24 12:48] LABS: Absolute Lymphocytes (CBC) 0.8 K/uL (0.7-4.9); Hematocrit 35.8 % (36.0-45.0); Lymphocytes % 13.3 % (15.3-44.8); MCV 88.4 fL (80-100); MPV 8.1 fL (7.6-11.3); RBC Red Blood Cell Count 4.06 M/uL (3.86-4.86)
[2022-08-24 13:02] LABS: Potassium 3.6 mEq/L (3.5-5.1)
[2022-08-24] MEDS: ACETAMINOPHEN 500 MG TAB PO PRN ×2 (15:24→20:51)
[2022-08-25] MEDS: Ringers Lactate 1,000 ML IV SCH ×2 (08:00→13:19)
[2022-08-25 08:14] LABS: Absolute Lymphocytes (CBC) 0.7 K/uL (0.7-4.9); Hematocrit 31.3 % (36.0-45.0); Lymphocytes % 17.3 % (15.3-44.8); MCV 86.9 fL (80-100); MPV 8.2 fL (7.6-11.3)
[2022-08-25] MEDS: ENOXAPARIN 40 MG/0.4 ML SQ SCH ×2 (08:19→08:27)
[2022-08-25] MEDS: MORPHINE 2 MG/ML SYR IV PRN (08:19)
[2022-08-25] MEDS: CEFTRIAXONE 1,000 MG in NA CHLORIDE 0.9% 50 ML IVPB SCH (08:19)
[2022-08-25 08:29] LABS: Potassium 3.6 mEq/L (3.5-5.1)
[2022-08-25] MEDS ORDERED: HYDROCODONE/APAP 5/325 MG TAB PO PRN (10:20)
[2022-08-25] MEDS: HYDROMORPHONE HCL 0.5 MG/0.5 ML INJ IV PRN (14:36)
[2022-08-25] MEDS: ONDANSETRON 4 MG/2 ML VIAL IV PRN (16:00)
--- NOTE | 2022-08-25 17:23 | P.PN ---
Subjective Date of Service: 08/25/22 Chief Complaint: Pyelonephritis Yesterday afternoon, she spiked a fever to 101.2 F. She reports significant bilateral flank pain, which she states is unchanged since admission. She reports that she does not like the way morphine makes her feel. She denies any chest pain, palpitations, shortness of breath. Review of Systems 10-point ROS is otherwise unremarkable Musculoskeletal: Back Pain (bilateral flank) Physical Examination - Vital Signs Temperature: 98.1 F Blood Pressure: 108/66 Pulse: 74 Respirations: 16 Pulse Ox (%): 100 Assessment And Plan - Plan - Physical Exam General: Alert, In no apparent distress, Oriented x3 HEENT: Atraumatic, Mucous membr. moist/pink, Sclerae nonicteric Neck: JVD not distended Respiratory: Clear to auscultation bilaterally, Normal air movement Cardiovascular: No edema, Regular rate/rhythm, No murmurs Gastrointestinal: Normal bowel sounds, Soft, Non-distended, No tenderness Musculoskeletal: No clubbing. Bilateral CVA tenderness Integumentary: No rashes Neurological: Normal speech, Normal affect # Sepsis likely secondary to Bilateral Pyelonephritis She meets SIRS criteria based on HR > 90 bpm and WBC > 12,000, and the suspected source is pyelonephritis. - Evaluation: - Urinalysis = 1+ urobilinogen, 75 leukocyte esterase, 10-20 WBCs, 1+ protein - Chest x-ray = "no acute intrathoracic process suspected." - CT abdomen/pelvis = "pyelonephritis involves the left kidney, which is enlarged. No perinephric abscess. Early pyelonephritis suspected to be developing involving the right kidney as well. Small nonobstructing right renal calculus." - CT head/cervical spine = "no acute intracranial or cervical spine findings." - Sepsis order set was initiated - Initial Lactate was 1.8 - Blood cultures drawn before antibiotics were given - Broad spectrum antibiotics started: Ceftriaxone - In regards to fluids: - 30 mL/kg of IV fluids was not administered given SBP > 90, MAP > 65, lactic acid < 4 # KDIGO Stage I Acute Kidney Injury - resolved - Creatinine = 1.21 -> 0.83 -> 0.75 (creatinine was 0.66 on 01/30/2022) - Urinalysis = 1+ urobilinogen, 75 leukocyte esterase, 10-20 WBCs, 1+ protein - IV fluids with Lactated Ringers' @ 100 mL/hr - Monitor creatinine and urine output - If worsening, obtain renal ultrasound - Renally dose medications # Mild Hypovolemic Hyponatremia - resolved - Sodium level: 128 -> 132 -> 136 - IV fluids as mentioned above # Asthma - No evidence of acute exacerbation - Continue home meds Yao Martini M.D.
[2022-08-26 01:03] VITALS: O2SAT 96
[2022-08-26] MEDS: Ringers Lactate 1,000 ML IV SCH ×3 (04:00→19:26)
[2022-08-26 05:40] LABS: Absolute Lymphocytes (CBC) 1.2 K/uL (0.7-4.9); Hematocrit 31.3 % (36.0-45.0); MCV 87.2 fL (80-100); MPV 8.4 fL (7.6-11.3); RBC Red Blood Cell Count 3.59 M/uL (3.86-4.86)
[2022-08-26 05:53] LABS: Potassium 3.5 mEq/L (3.5-5.1)
[2022-08-26] MEDS: CEFTRIAXONE 1,000 MG in NA CHLORIDE 0.9% 50 ML IVPB SCH (08:36)
[2022-08-26] MEDS: ENOXAPARIN 40 MG/0.4 ML SQ SCH (08:36)
[2022-08-26] MEDS: HYDROMORPHONE HCL 0.5 MG/0.5 ML INJ IV PRN ×3 (08:42→23:23)
[2022-08-26] MEDS: ONDANSETRON 4 MG/2 ML VIAL IV PRN ×2 (08:58→19:26)
--- NOTE | 2022-08-26 11:48 | P.PN ---
Date of Service: 08/26/22 Subjective: ROS: 10 point ROS as noted above, otherwise negative Physical Exam: GEN: Alert, oriented, NAD HEENT: Normal conjunctiva, sclera anicteric CV: Regular rate & rhythm, no edema Pulm: Nonlabered respiraitons on room air ABD: Soft, nontender, nondistended MSK: Bilateral CVA tenderness Integumentary: No rashes Neuro: Normal speech, normal affect vitals reviewed Problem List: Sepsis likely secondary to Bilateral Pyelonephritis LEILA - resolved Mild Hypovolemic Hyponatremia - resolved Asthma Sepsis likely secondary to Bilateral Pyelonephritis She meets SIRS criteria based on HR > 90 bpm and WBC > 12,000, and the suspected source is pyelonephritis. UA: 1+ urobilinogen, 75 leukocyte esterase, 10-20 WBCs, 1+ protein CXR (08/23): no acute intrathoracic process suspected CT abdomen/pelvis (08/23): pyelonephritis involves the left kidney, which is enlarged. No perinephric abscess. Early pyelonephritis suspected to be developing involving the right kidney as well. Small nonobstructing right renal calculus. CT head/cervical spine(08/23): no acute intracranial or cervical spine findings. Blood cultures: NGTD Urine culture: no growth continue Ceftriaxone (08/24-) LEILA - resolved monitor renal function improved Mild Hypovolemic Hyponatremia - resolved IVF, improved Asthma No evidence of acute exacerbation Continue home meds VTE: Lovenox Code: Full Dispo: Home
--- NOTE | 2022-08-26 14:11 | P.DS ---
Disposition: ROUTINE DISCHARGE Discharge Condition: GOOD Reason for Admission: Pyelonephritis Brief History of Present Illness: 32yo F, PMH: asthma, anemia Patient presents to the emergency department with chief complaint of decreased urinary output, inability to void, low back pain for the last 3 to 4 days. She also reports multiple syncopal episodes over the course of last 4 days which she attributes to low blood sugar. She has not measured her blood sugar at home but she reports she does have "hypoglycemia". She was evaluated in the emergency department her labs are significant for levels of 0.5 Sodium 128 Potassium to 3.2 Chloride 94 Creatinine 1.21 GFR [address] Abdomen Pelvis Shows Pyelonephritis Involving the Left Kidney Which Is Enlarged, No Perinephric Mass. Early Pyelonephritis Suspected to Be Evolving Involving the Right Kidney As Well. Small Nonobstructing Right Renal Calculus. Chest X-Ray Negative for Acute Findings CT Head/C-Spine Was Also Performed Given Her Multiple Syncopal Events/Falls Which Showed No Acute Intracranial or Cervical Spine Findings. Patient Was Started on Rocephin for Pyelonephritis SIRS Criteria Present Including Leukocytosis, Tachycardia. Source Infection Confirmed on CT without Nephritis. Hospital Course: Problem List: Sepsis likely secondary to Bilateral Pyelonephritis LEILA - resolved Mild Hypovolemic Hyponatremia - resolved Asthma -Follow-up with PCP in 1 to 2 weeks -Please call Dr. Preciado at [phone] if any questions regarding hospital stay -Please call nursing station at [phone] if any nursing or medication questions -Return to the emergency room if symptoms worsen Physical Exam: GEN: Alert, oriented, NAD HEENT: Normal conjunctiva, sclera anicteric CV: Regular rate & rhythm, no edema Pulm: Nonlabored respiraitons on room air ABD: Soft, nontender, nondistended MSK: no tenderness Integumentary: No rashes Neuro: Normal speech, normal affect Vital Signs/Physical Exam: Temp Pulse Resp BP Pulse Ox 97.9 F 52 14 97/59 L 100 08/26/22 12:00 08/26/22 12:00 08/26/22 12:00 08/26/22 12:00 08/26/22 12:00 Laboratory Data at Discharge: WBC 4.90 thou/uL (4.3-10.9) 08/26/22 04:54 Hgb 10.7 g/dL (12.0-15.0) L 08/26/22 04:54 Hct 31.3 % (36.0-45.0) L 08/26/22 04:54 Plt Count 174 thou/uL (152-406) D 08/26/22 04:54 PT 11.8 SECONDS (9.5-12.5) 08/23/22 19:40 INR 1.07 08/23/22 19:40 APTT 31.7 SECONDS (24.3-36.9) 08/23/22 19:40 Sodium 140 mEq/L (136-145) 08/26/22 04:54 Potassium 3.5 mEq/L (3.5-5.1) 08/26/22 04:54 BUN 5 mg/dL (7-18) L 08/26/22 04:54 Creatinine 0.60 mg/dL (0.55-1.02) 08/26/22 04:54 Glucose 98 mg/dL (74-106) 08/26/22 04:54 Total Bilirubin 0.8 mg/dL (0.2-1.0) 08/23/22 18:48 AST 21 U/L (15-37) 08/23/22 18:48 ALT 33 U/L (13-56) 08/23/22 18:48 Alkaline Phosphatase 82 U/L (45-117) 08/23/22 18:48 Home Medications: Cefdinir [Cefdinir*] 300 mg PO BID #14 cap 08/26/22 Hydrocodone 7.5/APAP 325 [[place] 7.5/325 mg] 1 tab PO Q6H PRN #30 tab 08/26/22 New Medications: Cefdinir [Cefdinir*] 300 mg PO BID #14 cap Hydrocodone 7.5/APAP 325 [[place] 7.5/325 mg] 1 tab PO Q6H PRN #30 tab PRN Reason: Pain Physician Discharge Instructions: PROBLEM: Pyelonephritis GOAL: Clear understanding of disease process INSTRUCTIONS: DC IV and DC home Follow-up with PCP in 1 to [address] Preciado at [phone] if any questions regarding hospital stay Please call nursing station at [phone] if any nursing or medication questions Return to the emergency room if symptoms worsen Diet: Regular Activity: Fall precautions DME DME: Date Ordered: Name of Company: [employer] Services Needed: None Name of Company: Date or Referral: IMMUNIZATION Influenza Vaccine Indicated: Influenza Vaccine Given: Date Given: Pneumonia Vaccine Indicated: No Pneumonia Vaccine Given: Date Given: Diet: Regular Activity: Fall precautions Followup: NONE,NONE [Primary Care Provider] - Time spent managing pt's care (in minutes): 45
--- NOTE | 2022-08-26 17:17 | EKG ---
Test Date: 2022-08-23 Test Time: 18:49:24 Injection Molding Engineer: MAYA MEASUREMENT RESULTS: Intervals: Rate: 99 HI: 120 QRSD: 92 QT: 336 QTc: 431 Cora: P: 72 HI: 120 QRS: 73 T: 68 INTERPRETIVE STATEMENTS: Normal sinus rhythm Normal ECG No previous ECG available for comparison Electronically Signed On 08-26-22 17:12:06 CDT by Mikel Duenas
[2022-08-26] MEDS: ENSURE CLEAR 200 ML CAN PO SCH (21:00)
[2022-08-27] MEDS: HYDROMORPHONE HCL 0.5 MG/0.5 ML INJ IV PRN ×3 (04:35→15:37)
[2022-08-27] MEDS: ONDANSETRON 4 MG/2 ML VIAL IV PRN ×2 (04:38→15:42)
[2022-08-27] MEDS: Ringers Lactate 1,000 ML IV SCH (07:35)
[2022-08-27] MEDS: ENSURE CLEAR 200 ML CAN PO SCH (07:36)
[2022-08-27] MEDS: CEFTRIAXONE 1,000 MG in NA CHLORIDE 0.9% 50 ML IVPB SCH (07:37)
[2022-08-27] MEDS: ENOXAPARIN 40 MG/0.4 ML SQ SCH (07:37)
[2022-08-27 08:40] LABS: Hematocrit 30.1 % (36.0-45.0); Lymphocytes % 19.4 % (15.3-44.8); MCV 87.6 fL (80-100); MPV 8.3 fL (7.6-11.3); RBC Red Blood Cell Count 3.44 M/uL (3.86-4.86)
[2022-08-27] MEDS ORDERED: Mupirocin NASAL 2 APPL/1 GM TUBE NAS SCH (09:00)
[2022-08-27 09:06] LABS: Albumin 2.3 g/dL (3.4-5.0); Bilirubin Total 0.2 mg/dL (0.2-1.0); C-Reactive Protein 16.1 mg/L (<3.00); Potassium 3.6 mEq/L (3.5-5.1); Protein, Total 5.9 g/dL (6.4-8.2)
--- NOTE | 2022-08-27 09:27 | RAD REPORT ---
EXAM DESCRIPTION: US - Renal Ultrasound-Complete - 08/27/2022 9:08 am CLINICAL HISTORY: pyelo, recent CT Pain and swelling COMPARISON: No comparisons FINDINGS: The left kidney appears enlarged relative to the right. The right kidney measures 11.2 x 4.8 x 3.5 cm. No hydronephrosis, focal mass or perinephric fluid. The left kidney measures 13.4 x 6.5 x 6.5 cm. No hydronephrosis, focal mass or perinephric fluid. No perinephric abscess. The urinary bladder is incompletely distended without gross abnormality seen. Spleen is enlarged measuring 14 cm. IMPRESSION: There is enlargement of the left kidney without hydronephrosis or perinephric fluid/absc ess. Splenomegaly.
--- NOTE | 2022-08-27 09:39 | RAD REPORT ---
EXAM DESCRIPTION: US - Extremity Venous Uni Ltd - 08/27/2022 9:22 am CLINICAL HISTORY: Right lower ext edema, hospitalization Leg swelling and edema. COMPARISON: No comparisons FINDINGS: Right lower extremity venous system was interrogated with Doppler technique. Normal flow, compressibility and augmentation was noted. There is no DVT present. IMPRESSION: No evidence of right lower extremity deep venous thrombosis.
[2022-08-27 09:57] LABS: Rheumatoid Factor NR (NEG)
--- NOTE | 2022-08-27 10:38 | P.PN ---
Subjective Date of Service: 08/27/22 Chief Complaint: Pyelonephritis Subjective: Other (started full liquids yesterday, vomited pudding, pt states she feels terrible, no improvement in abd/flank pain) Review of Systems General: Malaise Eyes: Unremarkable ENT: Unremarkable Respiratory: Unremarkable Cardiovascular: Unremarkable Gastrointestinal: Nausea, Abdominal Pain, No Distention Genitourinary: Unremarkable Musculoskeletal: Unremarkable Integumentary: Unremarkable Neurological: Unremarkable Lymphatics: Unremarkable Physical Examination - Vital Signs Temperature: 98.1 F Blood Pressure: 102/64 Pulse: 60 Respirations: 20 Pulse Ox (%): 99 - Physical Exam General: Alert, Oriented x3, Cooperative, Cachectic, Other (looks unwell) HEENT: Atraumatic, Normocephalic, PERRLA Neck: Supple, 2+ carotid pulse no bruit, JVD not distended Respiratory: Clear to auscultation bilaterally, Normal air movement Cardiovascular: Regular rate/rhythm, Other (right leg larger than left, US negative for DVT) Capillary refill: <2 Seconds Gastrointestinal: Non-distended, No ascites, Tenderness Musculoskeletal: No tenderness Integumentary: Other (pallor) Neurological: Normal tone Lymphatics: No axilla or inguinal lymphadenopathy External genitalia: Deferred Assessment And Plan - Current Problems (Diagnosis) (1) Pyelonephritis Onset Date: ~08/23/22 Current Visit: Yes Status: Acute Plan: Continue IVF, IV abx, urine culture/sensitivity results do not show growth, look for inflammatory causes. Ordered TSH, CPK, repeat CBC, CMP. Ordered Renal US, right leg edematous, ordered DVT study (negative result) (2) Abdominal pain Current Visit: Yes Status: Acute Plan: Continue 0.5mg Dilaudid q 4h for now, transition to po abx and pain medication when better tolerating po. Advance diet from clear to full and then soft. Pt states for now she has only been tolerating Popsicles Qualifiers: Abdominal location: generalized Qualified Code(s): R10.84 - Generalized abdominal pain Plan to discharge in: 48 Hours - Code Status/Comfort Care Code Status Assessed: Yes Code Status: Full Code Time Spent Managing PTS Care (In Minutes): 30
[2022-08-27 13:08] LABS: UR MICROALBUMIN 0.5 mg/dL (< 1.9)
[2022-08-27 16:58] VITALS: BP 108/67; TEMP 97.3
== END 2022-08-27 22:00 | disposition home or self-care (01) | DRG 872 ==
LOC: ER 17:39 → ERHOLD 21:37 → 4TH 08-24 00:20
PROVIDERS: ADMIT Internal Medicine; ATTEND Hospitalist
DX: A41.9 Sepsis, unspecified organism (principal); N10 Acute pyelonephritis; N17.9 Acute kidney failure, unspecified; E87.1 Hypo-osmolality and hyponatremia; R64 Cachexia; Z68.1 Body mass index [BMI] 19.9 or less, adult; R65.20 Severe sepsis without septic shock; E87.6 Hypokalemia; E86.0 Dehydration; J45.909 Unspecified asthma, uncomplicated; R33.9 Retention of urine, unspecified; Z60.2 Problems related to living alone; Z56.0 Unemployment, unspecified; Z88.0 Allergy status to penicillin; Z98.51 Tubal ligation status; Z91.030 Bee allergy status; Z91.040 Latex allergy status; Z91.018 Allergy to other foods; Z79.899 Other long term (current) drug therapy
CPT/HCPCS: 36415; 70450; 71045; 72125; 74177; 76770; 80048; 80053; 81001; 82043; 82550; 82570; 82947; 83605; 83935; 84443; 84484; 84703; 85025; 85610; 85730; 86140; 86430; 87040; 87086; 87088; 93005; 93971; 99285; J0692; J0696; J1170; J1650; J2270; J2405; J3480; J7030; J7040; J7120; Q9967

== ENCOUNTER 2024-04-03 02:18 | Emergency (ER) | payer OTHER, SELFPAY ==
[2024-04-03] MEDS ORDERED: TRAMADOL HCL 50 MG TAB ONE (03:14)
[2024-04-03] MEDS ORDERED: KETOROLAC 30 MG/ML INJ ONE (04:48)
[2024-04-03] MEDS ORDERED: HYDROCODONE/APAP 5/325 MG TAB ONE (05:30)
--- NOTE | 2024-04-03 06:21 | RAD REPORT ---
EXAM DESCRIPTION: Head C Spine Mpr Wo Con RadLex: CT HEAD AND CERVICAL SPINE WITHOUT CONTRAST CLINICAL HISTORY: 34 years Female; PAIN; Bed Name: 7 TECHNIQUE: Noncontrast CT head and cervical spine. All CT scans at this facility use dose modulation, iterative reconstruction, and/or weight based dosi ng when appropriate to reduce radiation dose to as low as reasonably achievable. COMPARISON: None. FINDINGS: BRAIN: Parenchyma: No acute hemorrhage, large territorial infarction, or mass effect. Ventricles and extra-axial spaces: Appropriate for age. Visualized paranasal sinuses: Clear. Mastoid air cells: Clear. Bones: No acute focal abnormality. Additional comment: None. CERVICAL SPINE: Alignment: There is loss of the normal lordosis, which may be related to patient positioning or muscl e spasm. Vertebrae: Vertebral bodies and posterior elements are intact without acute fracture. Multilevel dege nerative changes. Extra-vertebral soft tissues: Normal. Additional comment: Incidental pulmonary cyst noted in the left upper lobe. IMPRESSION: 1. No acute intracranial findings. 2. No acute fracture or subluxation of the cervical spine. Electronically signed by: Wicho Bar MD 04/03/2024 05:59 AM [facility] Z9 Due to temporary technical issues with the PACS/[employer] reporting system, reports are being guido d by the in-house radiologist without review as a courtesy to ensure prompt reporting the interpreting radiologist is fully responsible for the content of the report. Transcribed Date/Time: 04/03/2024 6:20 AM
--- NOTE | 2024-04-03 06:21 | RAD REPORT ---
CLINICAL HISTORY: PAIN COMPARISON: None. TECHNIQUE: CT CHEST ABDOMEN PELVIS WITHOUT IV CONTRAST on 04/03/2024 3:23 AM ANALYTICAL ENGINEER This exam was performed according to our departmental dose-optimization program, which includes autom ated exposure control, adjustment of the mA and/or kV according to patient size and/or use of iterative reconstruction technique. FINDINGS: Chest: The heart is normal in size. There is no pericardial effusion. Intrathoracic lymph nodes are n ot enlarged. There is no pleural effusion, pleural thickening or pneumothorax. Central airways are patent. Lungs a re clear with no consolidation, mass or interstitial lung disease. Abdomen: The liver is normal in appearance. There is no biliary dilatation. Gallbladder is decompress ed. The pancreas and spleen are normal in appearance. Adrenal glands and left kidney are normal. There is mild right renal atrophy. There may be minimal right hydronephrosis with no clear obstructin g lesion. Abdominal aorta is normal in course and caliber without aneurysm. There is no free air. There is no r etroperitoneal adenopathy. Pelvis: There is no bowel obstruction. Urinary bladder is unremarkable. There is no free fluid. Uteru s is normal in size. Appendix is not well seen. Skeleton: There are no acute osseous findings. No suspicious bony lesions. IMPRESSION: No definite acute process. Mild right renal atrophy with minimal right hydronephrosis. Electronically signed by: Hansel Jacobo MD 04/03/2024 06:02 AM ANALYTICAL ENGINEER RP Due to temporary technical issues with the PACS/[employer] reporting system, reports are being guido d by the in-house radiologist without review as a courtesy to ensure prompt reporting the interpreting radiologist is fully responsible for the content of the report. Transcribed Date/Time: 04/03/2024 6:21 AM
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
[2024-04-03 07:06] VITALS: TEMP 97; O2SAT 100
[2024-04-03 07:09] VITALS: BP 131/81
== END 2024-04-03 06:38 | disposition home or self-care (01) ==
LOC: ER 02:18
DX: M54.50 Low back pain, unspecified (principal); G89.11 Acute pain due to trauma; W10.9XXA Fall (on) (from) unspecified stairs and steps, initial encounter
CPT/HCPCS: 70450; 71250; 72125; 74176; 96372; 99284